=== PATIENT | female | born 1945 | race Caucasian/White ===

== ENCOUNTER → 2018-05-02 08:14 | Outpatient (CLI) | payer MEDICARE, BC, SELFPAY ==
[2018-05-02 08:39] LABS: Absolute Basophil Count 0.02 k/cumm (0.0-0.2); Absolute Eosinophil Count 0.14 k/cumm (0.0-0.7); Absolute Lymphocyte Count 2.25 k/cumm (1.2-3.4); Absolute Monocyte Count 0.43 k/cumm (0.11-0.7); Absolute Neutrophil Count 3.27 k/cumm (1.2-6.7); Basophils % 0.3; Eosinophils % 2.3; HCT 40.4 % (36.0-46.0); Lymphocytes % 36.8; Mean Corp. HGB Concentration 34.7 g/dL (32.0-36.0); Mean Corpuscular Hemoglobin 29.2 pg (27.0-33.0); Mean Corpuscular Volume 84.2 fL (80-95); Neutrophils % 53.6; Platelet Count 159 x1000/uL (130-400); RBC Distribution Width 13.2 % (11.7-14.6); White Blood Cell Count 6.11 k/cumm (4.4-10.8)
[2018-05-02 09:51] LABS: ALT 32 U/L (12-78); AST 18 U/L (15-37); Albumin 3.9 g/dL (3.4-5.0); Alkaline Phosphatase 73 U/L (46-116); Anion Gap 8.8 mmol/L (3-11); BUN 15 mg/dL (7-18); CO2 28.2 mmol/L (21.0-32.0); CREATININE 0.93 mg/dL (0.55-1.02); Calcium 8.8 mg/dL (8.5-10.1); Chloride 106 mmol/L (98-107); Cholesterol 181 mg/dL (50-200); Estimated GFR 58.93 (mL/min/1.73m2); Glucose 118 mg/dL (70-100); HDL Cholesterol 53 mg/dL (40-60); LDL CHOLESTEROL 103 mg/dL (<100); Potassium 4.2 mmol/L (3.5-5.1); Sodium 143 mmol/L (136-145); Total Protein 6.5 g/dL (6.4-8.2); Triglyceride 208 mg/dL (30-150)
[2018-05-02 10:15] LABS: Bilirubin, Total 0.6 mg/dL (0.2-1.0)
== END ==
PROVIDERS: PCP Nurse Practitioner; Visit Provider Nurse Practitioner
DX: E78.5 Hyperlipidemia, unspecified (principal); I10 Essential (primary) hypertension; R73.9 Hyperglycemia, unspecified
CPT/HCPCS: 36415; 80053; 80061; 83721; 85025

== ENCOUNTER 2018-06-19 13:18 | Outpatient (CLI) | payer MEDICARE, BC, SELFPAY ==
--- NOTE | 2018-06-19 13:47 | DI.RAD_ITS ---
SYMPTOM/DIAGNOSIS: S/P RT JOCELINE, LT KNEE PAIN LEFT KNEE: Three views. There is mild elliott-articular spurring in the medial femoral tibial joint space and the posterior patella. There is an enthesophyte seen at the superior aspect of the patella. The joint spaces are otherwise well maintained. The bones are intact and normally mineralized. There is a small joint effusion. The soft tissues are unremarkable. IMPRESSION: Mild degenerative changes of the left knee. RIGHT HIP: Two views. Comparison is made with 06/30/16. There are again seen post surgical changes of a right total hip replacement. The orthopedic hardware appears intact. No evidence of loosening or infection is present. The bones are intact. No fracture or dislocation is identified. The soft tissues are grossly unremarkable. IMPRESSION: Stable right THR.
== END 2018-06-19 13:38 ==
PROVIDERS: Visit Provider Student in an Organized Health Care Education/Training Program
DX: M25.562 Pain in left knee (principal); M17.12 Unilateral primary osteoarthritis, left knee; M25.462 Effusion, left knee; Z96.641 Presence of right artificial hip joint; M23.92 Unspecified internal derangement of left knee; Z47.1 Aftercare following joint replacement surgery
CPT/HCPCS: 20610; 73562; 99214; 73502; J1040

== ENCOUNTER 2018-06-23 00:50 | Outpatient (CLI) | payer MEDICARE, BC, SELFPAY ==
--- NOTE | 2018-06-23 13:40 | DI.MRI_ITS ---
SYMPTOMS/DIAGNOSIS: LEFT KNEE PAIN, INTERNAL DERANGEMENT, M23.92 MRI OF THE LEFT KNEE: Comparison is made with July,. Fat-suppressed T2 axial, proton density and fat-suppressed T2 sagittal, T1 and fat-suppressed T2 coronal and proton density oblique sagittal sequences were performed. There is a large amount of abnormal signal in the posterior horn of the medial meniscus. There is also absence of a large portion of the body of the medial meniscus. The findings may be secondary to previous meniscectomy. The lateral meniscus appears intact. There is a mild amount of edema around the medial collateral ligament but no evidence of a full-thickness tear. There is cartilage thinning over the medial femoral condyle and a small amount of high signal in the underlying bone. The lateral collateral ligaments, anterior and posterior cruciate ligaments and extensor mechanism are unremarkable. There is some spurring at the quadriceps insertion on the patella. There is a small joint effusion. IMPRESSION: Diminutive-appearing body of the medial meniscus, presumably related to previous surgery. There is abnormal high signal in the posterior horn, which could represent a recurrent tear versus worsening of the previously noted inferior surfacing tear.
== END 2018-06-23 01:10 ==
PROVIDERS: PCP Nurse Practitioner; Visit Provider Student in an Organized Health Care Education/Training Program
DX: M25.562 Pain in left knee (principal); M23.92 Unspecified internal derangement of left knee
CPT/HCPCS: 73721

== ENCOUNTER 2018-08-14 11:05 | Outpatient (CLI) | payer MEDICARE, BC, SELFPAY ==
--- NOTE | 2018-08-15 10:30 | W.PREOPHP ---
Date of service: 08/14/18 Assessment and Plan (1) Internal derangement of left knee: Current visit: Yes Status: Acute Plan: Discussed surgery including surgical technique, recovery, benefits and risks including but not limited to risk of blood clot, infection, damage to soft tissues/nerves/blood vessels with patient in detail. After discussion patient gives verbal understanding of risks and elects to proceed with surgery. Patient had opportunity to have questions answered to her satisfaction. She will contact office if issues arise, patient will be scheduled for left knee arthroscopy with partial medial meniscectomy by Dr. Sadler on 08/22/18. History of Present Illness Narrative: Ms. Jennings is a 73-year-old female who presents to the clinic for preoperative visit for scheduled left knee arthroscopy and partial medial meniscectomy with Dr. Sadler on 08/22/18. Patient is status post left knee arthroscopy done [place] [address] Saenz in [place], [place]. Patient reports the following left knee arthroscopy she continued to experience pain which was treated with a series of 4 Synvisc injections. Following Synvisc injections patient reports she had complete pain relief until several years ago. Patient describes falling down a bank while gardening which elicited left knee pain several years ago at which time an MRI was ordered and she was treated with conservative therapies. MRI report from 07/27/[address] Reza reports summary of no fracture is identified. There are degenerative changes involving the medial meniscus and there is an apparent undersurfacing tear of the posterior meniscal horn. Patient reports pain following injury resolved until she started to experience left knee pain in summer 2017. Patient reports on June 14, 2018 she went for a run when she felt a snap in her knee and had significant pain as well as swelling. Patient describes at time of injury she had difficulty bearing weight on the leg due to the extreme pain. Patient was seen in orthopedic clinic on 06/19/18 at which time approximately 30 cc of blood-tinged joint fluid was aspirated and patient was given corticosteroid injection. Patient reports although she had improved symptoms following aspiration and injection she continued to have medial left knee pain that was described as a dull ache. Patient reports since June 2018 her knee feels like it is going to give out and is weak. Patient denies any actual giving out sensation. Pain is aggravated at night when patient is laying down and with movement on stairs, denies worsening symptoms with ascending or descending stairs. Patient denies the need for [id number] pain medications. Patient denies numbness or tingling. Patient has failed conservative therapies and continues to have pain which is restricting her desired activities therefore patient elects to continue with scheduling surgery. Impression of MRI of left knee by Dr. Noel on 06/23/18: Diminutive-appearing body of the medial meniscus, presumably related to previous surgery. There is abnormal high signal in the posterior horn, which could represent a recurrent tear versus worsening of the previously noted inferior surfacing tear. Pertinent Surgical Information Patient reports history of impaired fasting glucose which she does not require medication for. Review of patient's chart shows last hemoglobin A1c of 6.1 on 04/21/17, however patient reports she had additional studies done in approximately 6 months ago without significant change. Denies past medical history of: stroke, cardiac issues, angina, asthma, COPD, sleep apnea, renal issues, liver issues, hepatitis, gastrointestinal issues, ulcers, bleeding disorders, seizures, migraines, anxiety, depression, diabetes, autoimmune disorders, thyroid issues Denies prior complications from surgery or anesthesia. Review of Systems Constitutional Denies fever(s), Denies frequent falls and Denies headache(s) Eyes Denies change in vision ENT Denies dental pain, Denies headache(s), Denies epistaxis, Denies nasal congestion, Denies nasal discharge and Denies sore throat Cardiovascular Denies chest pain, Denies rapid heart rate, Denies irregular heart rhythm, Denies dyspnea, Denies dyspnea on exertion, Denies orthopnea, Denies paroxysmal nocturnal dyspnea and Denies slow heart rate Respiratory Denies dyspnea, Denies dyspnea on exertion and Denies wheezing Gastrointestinal Denies abdominal pain, Denies melena, Denies hematochezia, Denies constipation, Denies diarrhea, Denies nausea and Denies vomiting Genitourinary Denies hematuria, Denies dysuria and Denies urinary urgency Musculoskeletal Reports as per HPI, Denies numbness and Denies tingling Neurologic Denies frequent falls, Denies headache(s), Denies numbness and Denies tingling Psychiatric Denies anxiety and Denies depression Allergic/Immunologic Denies wheezing PFSH History of colon polyps (Acute) Fracture of phalanx of little finger (Acute) Fracture of toe (Acute) Status post tubal ligation (Acute) Internal derangement of left knee (Acute) Right hip pain (Resolved 01/21/16) Benign neoplasm of colon (Acute 06/15/13) Hypertension (Chronic) Other and unspecified hyperlipidemia (Acute 01/09/13) Impaired fasting glucose (Chronic 01/09/13) Essential hypertension (Acute 01/10/13) Osteoarthritis of right hip (Resolved) Family History Grandfather Diabetes Grandmother Diabetes Mother Lung cancer Father Colon cancer Heart disease Total replacement of hip (Inactive 06/15/16) Ligation of fallopian tube (Inactive) History of removal of cyst (Acute) H/O dilation and curettage (Acute) Status post bilateral cataract extraction (Acute) Status post arthroscopy of left knee (Acute) Status post right hip replacement (Acute 07/20/17) Family History Grandfather Diabetes Grandmother Diabetes Mother Lung cancer Father Colon cancer Heart disease Medical History History of colon polyps (Acute) Fracture of phalanx of little finger (Acute) Fracture of toe (Acute) Status post tubal ligation (Acute) Internal derangement of left knee (Acute) Right hip pain (Resolved 01/21/16) Benign neoplasm of colon (Acute 06/15/13) Hypertension (Chronic) Other and unspecified hyperlipidemia (Acute 01/09/13) Impaired fasting glucose (Chronic 01/09/13) Essential hypertension (Acute 01/10/13) Osteoarthritis of right hip (Resolved) Social History foster care: No marital status: number of children: 3 current occupational status: retired frequency: 1-2 times per week duration: 15-30 minutes/day Smoking/Tobacco Use Status: Never alcohol intake: current alcohol intake frequency: a few times a month substance use type: does not use Surgical History Total replacement of hip (Inactive 06/15/16) Ligation of fallopian tube (Inactive) History of removal of cyst (Acute) H/O dilation and curettage (Acute) Status post bilateral cataract extraction (Acute) Status post arthroscopy of left knee (Acute) Status post right hip replacement (Acute 07/20/17) Social History foster care: No marital status: number of children: 3 current occupational status: retired frequency: 1-2 times per week duration: 15-30 minutes/day Smoking/Tobacco Use Status: Never alcohol intake: current alcohol intake frequency: a few times a month substance use type: does not use Meds Home Medications Medication Instructions Recorded Confirmed Type multivitamin [Daily Multi-Vitamin] 1 ea PO DAILY 01/21/16 08/14/18 History aspirin 81 mg PO DAILY tab-cap 02/09/17 08/14/18 History atorvastatin 40 mg PO DAILY #90 tab-cap 02/15/18 08/14/18 Rx metoprolol succinate 100 mg PO DAILY #90 tab 02/15/18 08/14/18 Rx valsartan-hydrochlorothiazide 1 tab PO DAILY #90 tab 02/15/18 08/14/18 Rx varicella-zoster glycoE [id number] 50 mcg IM ONCE #1 each 05/18/18 08/14/18 Rx adj(PF) 50 mcg/0.5 mL IM susp, kit Allergies Allergy/AdvReac Type Severity Reaction Status Date / Time No Known Allergies Allergy Unverified 08/15/18 20:51 Exam Const General: cooperative and no acute distress [facility] Head: normal to inspection, normocephalic and atraumatic Ears: external ears normal General nose exam: external nose normal and no nasal discharge Face and sinus: face symmetric Mouth: oral mucosae normal, lip normal, tongue normal and moist mucous membranes Teeth and gingiva: dentition normal Throat: posterior oropharynx normal Eyes General: appearance normal, both eyes and all related structures Pupils: PERRL EOM: EOM intact bilaterally Neck Neck: trachea midline Carotids: normal carotid upstroke Lymphatic: no lymphadenopathy noted Resp Effort & Inspection: normal respiratory effort and able to speak in complete sentences Auscultation: clear to auscultation bilaterally, no rales, no rhonchi and no wheezes Cardio Heart Sounds: S1 normal, S2 normal, no murmurs, no rubs and no other Pulses: radial pulses present bilaterally GI Palpation: soft, no hepatosplenomegaly and nontender Auscultation: normal bowel sounds Skin General skin exam: no rashes or lesions noted Extrem Other: Left knee examination: Well-healed surgical incisions are noted consistent with past surgical history. Skin is intact without signs of erythema, lesions or ecchymosis. Slight effusion noted. No tenderness to palpation along joint lines or with movement of patella. Active range of motion yields full extension and flexion of 115 degrees. Knee stable to valgus and varus stress, stress test does not elicit pain. Jailene's testing elicits slight discomfort however no clicks were elicited.
== END 2018-08-14 11:25 ==
PROVIDERS: PCP Nurse Practitioner; Visit Provider Student in an Organized Health Care Education/Training Program
DX: M25.562 Pain in left knee (principal); M25.462 Effusion, left knee; M23.92 Unspecified internal derangement of left knee; Z01.818 Encounter for other preprocedural examination; I10 Essential (primary) hypertension
CPT/HCPCS: NC

== ENCOUNTER 2018-08-22 08:53 | Day surgery (SDC) | payer MEDICARE, BC, SELFPAY ==
[2018-08-22] VITALS (7 sets, daily range): BP systolic 142–176; BP diastolic 60–99; PULSE 64–67; RESP 15–21; TEMP 36.3–36.9; O2SAT 97–99
[2018-08-22] MEDS: Lactated Ringers 1,000 ML 80 ML IV (09:40)
--- NOTE | 2018-08-22 09:40 | W.PM.DSUDISC ---
Discharge Plan Disposition Patient Disposition: HOME Condition: Good Discharge Details Reason For Visit: Left knee arthroscopy Attending Provider: Deepak Sadler Primary Care Provider: Heaven Sousa Home Meds and New Rx's Prescriptions: New ibuprofen 600 mg tablet 600 mg PO TID PRNQty: 60 RF: 3 acetaminophen 500 mg capsule 1,000 mg PO Q8H PRN (Reason: pain) Qty: 60 RF: 0 oxycodone 5 mg tablet 2.5 - 5 mg PO Q4H Qty: 10 RF: 0 Continue varicella-zoster [id number] (PF) [Shingrix (PF)] 50 mcg/0.5 mL suspension for reconstitution 50 mcg IM ONCE Qty: 1 RF: 1 multivitamin [Daily Multi-Vitamin] 1 EACH tablet 1 ea PO DAILY RF: 0 aspirin 81 MG tablet,chewable 81 mg PO DAILY RF: 0 atorvastatin 40 MG tablet 40 mg PO DAILY Qty: 90 RF: 3 metoprolol succinate 100 MG tablet extended release 24 hr 100 mg PO DAILY Qty: 90 RF: 3 valsartan-hydrochlorothiazide 1 EACH tablet 1 tab PO DAILY Qty: 90 RF: 3 Discharge Instructions Stand Alone Forms: [facility] Knee Arthroscopy Equipment/Supplies: Partial Weight Bearing Crutches Activity:: Elevate Remove Dressings/Wound Care:: 72 hours Shower/Bathe:: 72 hours Diet:: As Tolerated Discharge Orders Discharge Orders: Discharge Order (Routine); Ordered 08/22/18 Ordered By: Deepak Sadler DS: Diagnosis Discharge Diagnosis (1) Internal derangement of left knee: Status: Acute
[2018-08-22] MEDS: Bupivacaine 0.5% Pres-Free 30 ML VIAL (10:20)
[2018-08-22] MEDS: oxyCODONE 5 MG TAB PO (11:36)
--- NOTE | 2018-08-23 05:53 | ROE_ITS ---
Date of service: 08/22/18 Time of Service: 11:52 Operative Note DATE OF PROCEDURE: 08/22/18 PRE-OP DIAGNOSIS: Left knee medial meniscal tear POST-OP DIAGNOSIS: same PROCEDURE: Left knee partial medial meniscectomy SURGEON: Deepak Sadler ANESTHESIA: GETA ESTIMATED BLOOD LOSS: 0 PATHOLOGY: none sent COMPLICATIONS: None Patient was transported to: PACU Patient's condition: stable Indications: I have seen Victoria in clinic for symptoms of a meniscus tear. This was confirmed based on MRI and exam findings. Nonoperative measures were exhausted but disability and pain persisted. I discussed knee arthroscopy with meniscal intervention with the patient. I reviewed the risks of the procedure to include, but not limited to, bleeding, infection, pain, stiffness, damage to nerves or vessels, recurrence, blood clot. Despite these risks, the patient elected to proceed. 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 The consent was reviewed with the patient and signed. The history and physical was updated. All questions were answered the was taken back to the operating room. The patient was placed into the supine position on the operating room table. A nonsterile tourniquet was placed high onto the leg but not used. All bony prominences were well padded. Prophylactic antibiotics in the form of cefazolin were administered. The left leg was then prepped with Chloraprep and draped in a standard fashion with stockinette and extremity drape. A timeout to confirm correct identity, side and site, procedure, allergies, anesthesia, and medical concerns was performed. The leg was placed into a pneumatic leg batista, [id number]. A standard lateral portal was made at the lateral border of the patella tendon in line with the inferior pole of the patella, soft spot. The skin and deep tissue was incised sharply and the blunt trochar was inserted atraumatically. A diagnostic arthroscopy was performed and the findings are listed above. The suprapatellar pouch had no significant inflammatory change. The patellofemoral articulation showed no articular damage as well as good tracking. The lateral gutter had no loose bodies and the medial gutter had no loose bodies. The knee was brought into some valgus stress in extension to open the medial compartment. A medial portal was made, localized by a spinal needle. The portal was created with an # 11 blade through skin and capsule under direct visualization avoiding any meniscal injury. A probe was then inserted into the medial compartment. The medial compartment was fully inspected. The chondral surface of the tibia showed global grade 3 changes focused primarily posteriorly and the surface of the femur showed some grade I chondromalacia. The medial meniscus had some complex tearing situated around the old posterior horn medial meniscal tear status post partial meniscectomy. After evaluation, the meniscus was debrided down to a stable base using a series of biters and arthroscopic gerri. It was probed afterwards to confirm that the tear had been removed and the meniscus was stable. The notch was then inspected which showed an intact ACL and an intact PCL. The leg was then brought into a figure of 4 position. The lateral compartment was fully inspected with the arthroscope and a probe. The chondral surface of the lateral femur showed no significant chondromalacia. The chondral surface of the lateral tibia showed no significant chondromalacia. The lateral meniscus had no meniscal tear. The arthroscope was brought back into the suprapatellar pouch and the leg was in full extension. The knee was thoroughly irrigated with the arthroscopic fluid on high flow and pressure. Inflow was stopped and excess fluid was removed. The wounds were closed with 4-0 Nylon. They were dressed with Xeroform, 4x4 gauze, ABD pad, Kerlix and an ANDREA wrap. A cryo-cuff was applied. The patient tolerated the procedure well and was returned to the Same Day Surgery area in a stable condition suffering no known complication.
== END 2018-08-22 12:50 | disposition home or self-care (01) ==
PROVIDERS: PCP Nurse Practitioner; Visit Provider Student in an Organized Health Care Education/Training Program
PROC: (CPT 29870; principal; 2018-08-22 10:00)
DX: S83.232A Complex tear of medial meniscus, current injury, left knee, initial encounter (principal); M94.262 Chondromalacia, left knee; X50.9XXA Other and unspecified overexertion or strenuous movements or postures, initial encounter; Y93.02 Activity, running; Z96.652 Presence of left artificial knee joint
CPT/HCPCS: 29881; E0114; J0690; J1100; J2405; J3010

== ENCOUNTER → 2018-08-30 10:55 | Outpatient (BNVA) | payer MEDICARE, BC, SELFPAY | PROVIDERS: PCP Nurse Practitioner; Referring Provider Nurse Practitioner; Visit Provider Student in an Organized Health Care Education/Training Program | DX: M23.304 Other meniscus derangements, unspecified medial meniscus, left knee (principal); M94.262 Chondromalacia, left knee; Z47.89 Encounter for other orthopedic aftercare; I10 Essential (primary) hypertension ==

== ENCOUNTER 2018-10-26 00:35 | Outpatient (CLI) | payer MEDICARE, BC, SELFPAY ==
--- NOTE | 2018-10-26 11:38 | DI.MAMMO_ITS ---
SYMPTOMS/DIAGNOSIS: BREAST CANCER SCREENING, Z12.31 MAMMOGRAMS: Mammograms were interpreted according to the usual protocol including computer analysis with CAD system, tomosynthesis and C view imaging. The breast tissue is of moderate radiodensity. There is no dominant mass. There are no suspicious calcifications and there has been no significant interval change when compared with prior images. SUMMARY: No evidence of malignancy, category 1. Yearly screening mammography is recommended.. Breast density category B. MQSA ASSESSMENT OF FINDINGS: Negative. Category 1. Patient will receive a letter notifying them of these results. BI-RADS category B. There are scattered areas of fibroglandular density.
== END 2018-10-26 00:55 ==
PROVIDERS: PCP Nurse Practitioner; Visit Provider Nurse Practitioner
DX: Z12.31 Encounter for screening mammogram for malignant neoplasm of breast (principal)
CPT/HCPCS: 77063; 77067

== ENCOUNTER 2019-05-15 11:15 | Outpatient (CLI) | payer MEDICARE, BC, SELFPAY ==
[2019-05-15 11:50] LABS: HCT 40.6 % (36.0-46.0); HGB 13.7 g/dL (12.0-15.5); Mean Corp. HGB Concentration 33.7 g/dL (32.0-36.0); Mean Corpuscular Hemoglobin 28.4 pg (27.0-33.0); Mean Corpuscular Volume 84.1 fL (80-95); Mean Platelet Volume 10.3 fL (8.0-11.0); Platelet Count 190 x1000/uL (130-400); RBC 4.83 m/cumm (4.00-5.20); RBC Distribution Width 13.5 % (11.7-14.6); White Blood Cell Count 5.54 k/cumm (4.4-10.8)
[2019-05-15 11:53] LABS: Hemoglobin A1C 6.5 % (4.5-6.2)
[2019-05-15 12:52] LABS: ALT 32 U/L (14-59); AST 14 U/L (15-37); Albumin 3.8 g/dL (3.4-5.0); Alkaline Phosphatase 73 U/L (46-116); Anion Gap 7.7 mmol/L (3-11); BUN 17 mg/dL (7-18); Bilirubin, Total 0.6 mg/dL (0.2-1.0); CO2 28.3 mmol/L (21.0-32.0); CREATININE 0.73 mg/dL (0.55-1.02); Calcium 8.9 mg/dL (8.5-10.1); Calculated LDL 79 mg/dL; Chloride 107 mmol/L (98-107); Cholesterol 169 mg/dL (50-200); Glucose 111 mg/dL (70-100); HDL Cholesterol 47 mg/dL (40-60); Sodium 143 mmol/L (136-145); Total Protein 6.6 g/dL (6.4-8.2); Triglyceride 219 mg/dL (30-150)
== END 2019-05-15 11:35 ==
PROVIDERS: PCP Nurse Practitioner; Visit Provider Nurse Practitioner
DX: E11.9 Type 2 diabetes mellitus without complications (principal); R73.01 Impaired fasting glucose; I10 Essential (primary) hypertension; E78.5 Hyperlipidemia, unspecified
CPT/HCPCS: 36415; 80053; 80061; 85027; 83036

== ENCOUNTER → 2020-01-17 11:27 | Outpatient (BNVA) | payer MEDICARE, BC, SELFPAY | PROVIDERS: PCP Nurse Practitioner; Referring Provider Nurse Practitioner; Visit Provider Student in an Organized Health Care Education/Training Program | DX: M67.88 Other specified disorders of synovium and tendon, other site (principal); E11.9 Type 2 diabetes mellitus without complications; I10 Essential (primary) hypertension | CPT/HCPCS: 99213 ==

== ENCOUNTER 2020-05-14 05:03 | Outpatient (CLI) | payer MEDICARE, BC, SELFPAY ==
[2020-05-14 07:47] LABS: Hemoglobin A1C 6.3 % (<5.7)
[2020-05-14 08:20] LABS: ALT 32 U/L (14-59); AST 20 U/L (15-37); Alkaline Phosphatase 71 U/L (46-116); Anion Gap 9.1 mmol/L (3-11); BUN 19 mg/dL (7-18); Bilirubin, Total 0.8 mg/dL (0.2-1.0); CO2 27.9 mmol/L (21.0-32.0); CREATININE 0.86 mg/dL (0.55-1.02); Calcium 9.2 mg/dL (8.5-10.1); Calculated LDL 86 mg/dL (<100); Chloride 107 mmol/L (98-107); Cholesterol 163 mg/dL (<200); Glucose 126 mg/dL (74-106); HDL Cholesterol 54 mg/dL (40-60); Potassium 4.1 mmol/L (3.5-5.1); Sodium 144 mmol/L (136-145); Total Protein 6.6 g/dL (6.4-8.2); Triglyceride 117 mg/dL (<150)
== END 2020-05-14 05:23 ==
PROVIDERS: PCP Nurse Practitioner; Visit Provider Nurse Practitioner
DX: E11.9 Type 2 diabetes mellitus without complications (principal); E78.5 Hyperlipidemia, unspecified; I10 Essential (primary) hypertension
CPT/HCPCS: 36415; 80053; 80061; 83036

== ENCOUNTER 2020-05-16 14:36 | Outpatient (CLI) | payer MEDICARE, BC, SELFPAY ==
[2020-05-18 14:52] LABS: Patient Race White; SARS-CoV-2 RNA Undetected (Undetected); SARS-CoV-2 Specimen Source Nasopharynx
== END 2020-05-16 14:56 ==
PROVIDERS: PCP Nurse Practitioner; Visit Provider Family Medicine
DX: R50.9 Fever, unspecified (principal)
CPT/HCPCS: U0003

== ENCOUNTER 2020-05-18 12:24 | Emergency (ER) | payer MEDICARE, BC, SELFPAY ==
[2020-05-18 12:46] VITALS: BP 153/90; PULSE 89; RESP 20; TEMP 37.8; O2SAT 95
--- NOTE | 2020-05-18 13:18 | W.ED.GENAD ---
Discharge Plan Disposition Patient Disposition: HOME Condition: Stable Discharge Details Chief Complaint: Fever Clinical Impression: Fever, Pharyngeal inflammation, Urinary tract infection Primary Care Provider: Heaven Sousa ED Provider: Mic Arango Home Meds and New Rx's Prescriptions: New cephalexin [Keflex] 500 mg capsule 500 mg PO TID Qty: 20 RF: 0 Continued atorvastatin 40 mg tablet 40 mg PO DAILY Qty: 90 RF: 3 metoprolol succinate 100 mg tablet extended release 24 hr 100 mg PO DAILY Qty: 90 RF: 3 magic mouthwash See Rx Instructions .ROUTE .COMPLEX Qty: 120 RF: 0 multivitamin [Daily Multi-Vitamin] 1 EACH tablet 1 ea PO DAILY RF: 0 aspirin 81 MG tablet,chewable 81 mg PO DAILY RF: 0 valsartan-hydrochlorothiazide 80-12.5 mg tablet 1 tab PO DAILY Qty: 90 RF: 3 ibuprofen 600 mg tablet 600 mg PO TID PRNQty: 60 RF: 3 acetaminophen 500 mg capsule 1,000 mg PO Q8H PRN (Reason: pain) Qty: 60 RF: 0 Discharge Instructions Instructions: Urinary Tract Infection in Women (ED), Fever in Adults (ED) Additional Instructions: Please drink plenty of fluid to stay hydrated. Please take acetaminophen (tylenol) - 650mg every 6 hours by mouth as needed for fever. Please take ibuprofen over the counter. Take 600mg by mouth every 6 hours as needed for fever. Take full course of antibiotic as prescribed. Please follow-up with your research worker encyclopedia regarding ongoing inflammation of the ear throat. Please follow-up with your primary care physician. COVID-19 testing is still pending and quarantine is still recommended. Please be sure to discuss results of urine culture. Return to emergency [facility] immediately for any worsening or new concerning symptoms. Referrals: Durga Boone DO [OSTEOPATHIC DOCTOR] - Heaven Sousa NP [Primary Care Provider] - Medical Decision Making 74-year-old female here with 3 days of fever. No signs of focal bacterial infection on exam. She has had recent sense of urinary urgency. She does not have any history of urinary tract infections. Also of note she did have some intermittent left flank discomfort that is not currently present. No CVA tenderness. Abdominal exam benign. Lungs clear to auscultation. Patient does not have a sore throat but does have mild erythema left peritonsillar area. No swelling. She has been seen by ear nose and throat for this a few weeks ago. Redness has persisted and she does plan to follow-up with ENT. I encouraged her to do this. Today urinary tract infection. Urinalysis reviewed and does have 3-5 white blood cells and 3-5 red blood cells with many bacteria and only few epithelial cells. Plan to initiate treatment with Keflex 500 3 times daily x7 days. Urine culture pending. HPI General Mode of arrival: ambulatory. Date/Time Provider Initiated Documentation: 05/18/20 12:55. Limitations to Documentation: no limitations. Information obtained by: patient. HPI Narrative: 74-year-old female presents with chief complaint of fever. Patient notes that her fever started 3 days ago and has persisted. She has associated muscle aches and does note that she had some pain in her left flank. This pain is now gone. She states she is having difficulty getting to the bathroom with a sense of urgency. No dysuria or hematuria noted. She has had some mild nausea with no vomiting. Decreased appetite. Patient spoke with her PCP and was tested for COVID-19 on Tuesday. COVID-19 testing is pending. No recent travel or known exposure to COVID-19. Patient denies cough or sore throat. No headache. No rash. Related Data Home Medications Medication Instructions Recorded Confirmed multivitamin [Daily Multi-Vitamin] 1 ea PO DAILY 01/21/16 05/18/20 aspirin 81 mg PO DAILY tab-cap 02/09/17 05/18/20 acetaminophen 1,000 mg PO Q8H PRN #60 cap 08/22/18 05/18/20 ibuprofen 600 mg PO TID PRN #60 tab 08/22/18 05/18/20 valsartan 80 1 tab PO DAILY #90 tab 11/13/19 05/18/20 mg-hydrochlorothiazide 12.5 mg tablet atorvastatin 40 mg tablet 40 mg PO DAILY #90 tab-cap 11/22/19 05/18/20 metoprolol succinate 100 mg 100 mg PO DAILY #90 tab 11/22/19 05/18/20 tablet,extended release 24 hr magic mouthwash See Rx Instructions .ROUTE 04/02/20 04/02/20 .COMPLEX #120 ml cephalexin [Keflex] 500 mg PO TID #20 cap 05/18/20 Previous Rx's Medication Instructions Recorded acetaminophen 1,000 mg PO Q8H PRN #60 cap 08/22/18 ibuprofen 600 mg PO TID PRN #60 tab 08/22/18 valsartan 80 1 tab PO DAILY #90 tab 11/13/19 mg-hydrochlorothiazide 12.5 mg tablet atorvastatin 40 mg tablet 40 mg PO DAILY #90 tab-cap 11/22/19 metoprolol succinate 100 mg 100 mg PO DAILY #90 tab 11/22/19 tablet,extended release 24 hr magic mouthwash See Rx Instructions .ROUTE 04/02/20 .COMPLEX #120 ml cephalexin [Keflex] 500 mg PO TID #20 cap 05/18/20 Allergies Allergy/AdvReac Type Severity Reaction Status Date / Time No Known Allergies Allergy Verified 05/18/20 12:49 General Stated Complaint: Fever DALJIT: 3 Review of Systems All systems reviewed & are unremarkable except as noted in HPI and below Constitutional Constitutional: Reports as per HPI, Reports body ache(s) and Reports fever(s) Cardiovascular Cardiovascular: Denies chest pain and Denies dyspnea Respiratory Respiratory: Denies dyspnea Gastrointestinal Gastrointestinal: Reports as per HPI and Denies abdominal pain PFSH Medical History Achilles tendinosis of right lower extremity (Acute) Benign neoplasm of colon (Acute 06/15/13) Diabetes type 2, controlled (Acute) Essential hypertension (Acute 01/10/13) goal 150/90 Fracture of phalanx of little finger (Acute) Reports fracture of right little finger Fracture of toe (Acute) Reports falling injury Injured second toes on left and right feet on separate occasions between [id number] History of colon polyps (Acute) Internal derangement of left knee (Resolved) Osteoarthritis of right hip (Resolved) Other and unspecified hyperlipidemia (Acute 01/09/13) PCEq 17.9%; LDL baseline 152 Right hip pain (Resolved 01/21/16) RTHA 06/15/16 Dr Sadler Surgical History H/O dilation and curettage (Inactive) History of removal of cyst (Acute) Removal of sebaceous cyst from anterior chest Ligation of fallopian tube (Inactive) Status post arthroscopy of left knee (Acute) 2006 Dr. Dany [place]otom[place], [place] Status post bilateral cataract extraction (Acute) Status post right hip replacement (Acute 07/20/17) DOS: 06/15/16 Dr. Sadler Status post tubal ligation (Inactive) Total replacement of hip (Inactive 06/15/16) Dr Sadler R anterior total hip arthroplasty Family History Grandfather Diabetes Grandmother Diabetes Mother Lung cancer Father Colon cancer Heart disease Social History Smoking/Tobacco Use Status: Never Alcohol Intake: current Alcohol Intake frequency: a few times a month Drug use: Never Substance use type: does not use Foster care: No Household members: spouse Housing: house Number of Children: 3 What is your relationship status?: Panel score (0-1 are the most socially isolated patients): 0 Duration: 15-30 minutes/day Frequency: 1-2 times per week Do you feel safe at home: Yes Do you feel safe in your relationship?: Yes Exam Const General: cooperative and no acute distress HENMT Ears: external ears normal and TM's normal bilaterally General nose exam: external nose normal Mouth: moist mucous membranes Throat: posterior oropharynx abnormal erythema (Left posterior oropharynx, patient notes ongoing issue being seen by ENT); no cobblstoning, no edema and no exudates Eyes Conjunctivae: normal conjunctivae Sclera: normal sclerae Neck Neck: trachea midline and supple Resp Auscultation: clear to auscultation bilaterally, no rales, no rhonchi and no wheezes Cardio Rate: regular rate and not tachycardic Rhythm: regular rhythm GI Palpation: soft, not firm, no guarding, no masses, not rigid and nontender Skin General skin exam: no rashes or lesions noted Neuro General: patient alert, patient awake and tone normal Extrem General: no edema Psych Appearance: grossly normal Mental Status: mental status grossly normal Course Vital Signs Vital signs: Vital Signs Temperature 37.8 C H 05/18/20 12:46 Pulse 89 05/18/20 12:46 Respiratory Rate 05/18/20 12:46 Blood Pressure 153/90 H 05/18/20 12:46 Pulse Oximetry 95 05/18/20 12:46 Temperature 37.8 C H 05/18/20 12:46 Temperature Source Oral 05/18/20 12:46 Pulse 89 05/18/20 12:46 Respiratory Rate 20 05/18/20 12:46 Blood Pressure 153/90 H 05/18/20 12:46 Blood Pressure Position Supine 05/18/20 12:46 Pulse Oximetry 95 05/18/20 12:46 Oxygen Delivery Method Room Air 05/18/20 12:46 Oxygen Flow Rate 0 05/18/20 12:46 Pain Level 0 05/18/20 12:46
[2020-05-18 13:50] LABS: Bilirubin Small (Negative); Blood Trace-intact (Negative); Clarity Cloudy (Clear); Glucose Negative (Negative); Ketones Negative (Negative); Leukocyte Esterase Negative (Negative); Nitrite Negative (Negative); Specific Gravity >= 1.030 (1.005-1.025); pH 5.5 (5-8)
[2020-05-18 13:59] LABS: Bacteria Many HPF (Negative); C & S Indicated? Yes; Casts 0-2 Hyaline LPF (Negative); Crystals Negative HPF (Negative); Epithelial Cells Few HPF (Negative); Mucus Negative (Negative)
[2020-05-18] MEDS: Cephalexin 500 MG CAP PO (14:24)
== END 2020-05-18 14:28 | disposition home or self-care (01) ==
PROVIDERS: Emergency Provider Student in an Organized Health Care Education/Training Program; PCP Nurse Practitioner
DX: R50.9 Fever, unspecified (principal); N39.0 Urinary tract infection, site not specified; J39.2 Other diseases of pharynx; E11.9 Type 2 diabetes mellitus without complications; I10 Essential (primary) hypertension
CPT/HCPCS: 99283; 81003; 81015; 87086

== ENCOUNTER 2020-05-26 10:25 | Outpatient (REF) | payer MEDICARE, BC, SELFPAY ==
[2020-05-26 19:12] LABS: Bilirubin Negative (Negative); Blood Negative (Negative); Clarity Clear (Clear); Glucose Negative (Negative); Ketones Negative (Negative); Leukocyte Esterase Negative (Negative); Nitrite Negative (Negative); Urobilinogen 0.2 EU/dL (Up TO 0.2)
== END 2020-05-26 10:45 ==
LOC: LBN 10:25
PROVIDERS: PCP Nurse Practitioner; Visit Provider Nurse Practitioner Adult Health
DX: N39.0 Urinary tract infection, site not specified (principal); R31.9 Hematuria, unspecified
CPT/HCPCS: 81003

== ENCOUNTER 2020-05-28 04:03 | Outpatient (CLI) | payer MEDICARE, BC, SELFPAY ==
[2020-05-28 16:51] LABS: Abs Immature Grans 0.03 10^3/uL (0.0-0.06); Absolute Basophil Count 0.05 10^3/uL (0.0-0.2); Absolute Eosinophil Count 0.09 10^3/uL (0.0-0.7); Absolute Lymphocyte Count 2.55 10^3/uL (1.2-3.4); Absolute Monocyte Count 0.76 10^3/uL (0.1-0.8); Absolute Neutrophil Count 4.69 10^3/uL (1.2-6.7); Basophils % 0.6; Eosinophils % 1.1; HCT 41.3 % (36.0-46.0); HGB 13.8 g/dL (11.2-15.7); Immature Grans % 0.4; Lymphocytes % 31.2; MCH 28.5 pg (27.0-33.0); MCHC 33.4 % (32.0-36.0); MCV 85.2 fL (80-95); MPV 9.6 fL (8.0-11.0); Monocytes % 9.3; Neutrophils % 57.4; Nucleated RBC 0 %; Platelet Count 342 10^3/uL (130-400); RBC 4.85 10^6/uL (3.93-5.22); RDW 13.2 % (11.7-14.6); RDW-SD 41.1 fL; WBC 8.17 10^3/uL (4.4-10.8)
[2020-05-28 17:44] LABS: Anion Gap 11.2 mmol/L (3-11); BUN 17 mg/dL (7-18); CO2 25.8 mmol/L (21.0-32.0); CREATININE 0.82 mg/dL (0.55-1.02); Calcium 9.4 mg/dL (8.5-10.1); Chloride 103 mmol/L (98-107); Glucose 103 mg/dL (74-106); Potassium 3.7 mmol/L (3.5-5.1); Sodium 140 mmol/L (136-145)
[2020-05-30 10:20] LABS: Lyme Ab w Rflx to Lyme Confirm Negative (Negative)
== END 2020-05-28 04:23 ==
PROVIDERS: PCP Nurse Practitioner; Visit Provider Nurse Practitioner Adult Health
DX: I10 Essential (primary) hypertension (principal); R50.9 Fever, unspecified; R80.9 Proteinuria, unspecified; R79.9 Abnormal finding of blood chemistry, unspecified
CPT/HCPCS: 36415; 80048; 85025; 86618

== ENCOUNTER 2020-06-03 01:09 | Outpatient (CLI) | payer MEDICARE, BC, SELFPAY ==
--- NOTE | 2020-06-03 08:15 | DI.MAMMO_ITS ---
EXAM: MG MAMMO SCREENING CLINICAL HISTORY: screening,Z12.39 TECHNIQUE: Bilateral full field digital CC and MLO mammographic images were obtained with 3D tomosyn thesis and utilizing computer aided detection (CAD). COMPARISON: Available for comparison. FINDINGS: Masses/Architectural Distortion: None seen. Microcalcifications: No suspicious pleomorphic-type are seen. Skin Thickening/Nipple Retraction: None. IMPRESSION: 1. No significant interval change with no specific features of malignancy noted. 2. Unless there is more urgent need, screening mammography is recommended, as per [place] [employer] guidelines. BI-RADS Category 1 - Negative Breast Density - Category C - Heterogeneously dense The mammogram demonstrates the patient's breast tissue is dense. Dense breast tissue is very common a nd is not abnormal but dense breast tissue can make it harder to find cancer on a mammogram. Also, de nse breast tissue may increase their breast cancer risk. This information about the result of the [facility] mogram report was provided to the patient to raise their awareness. Use this report when you speak wi th the patient about their risks for breast cancer, which includes their family history. At that time , you may recommend for more screening tests (Ultrasound or MRI) as they might be useful based on the ir risk. A negative radiographic report should not delay biopsy if a dominant or clinically suspicious mass is present. Up to ten percent of cancers are not identified on mammography. A negative report may reinforce clinical impression. Adenosis and dense breasts may obscure an underlying neoplasm. False positive reports average 6 to 10%. Patient will receive a letter notifying them of these results.
== END 2020-06-03 01:29 ==
PROVIDERS: PCP Nurse Practitioner; Visit Provider Nurse Practitioner
DX: Z12.31 Encounter for screening mammogram for malignant neoplasm of breast (principal); R92.2 Inconclusive mammogram
CPT/HCPCS: 77063; 77067

== ENCOUNTER 2020-07-09 02:42 | Outpatient (CLI) | payer MEDICARE, BC, SELFPAY ==
--- NOTE | 2020-07-09 08:15 | DI.DEXA_ITS ---
EXAM: XR DEXA BONE DENSITY W/WO CASSANDRA CLINICAL HISTORY: screening FOR OSTEOPOROSIS IN POSTMENOPAUSAL WOMAN,Z78.0 TECHNIQUE: COMPARISON: CR XR hip RT AP lat only from 06/19/2018 FINDINGS: DEXA scan was performed according to the usual protocol. Findings for left hip scanning are T-score -1.0 with left femoral neck T-score -1.5. Findings for lumbar spine scanning are T-score 0.8. Findings for left forearm scanning are T-score -0.3. IMPRESSION: Findings consistent with osteopenia according to the WHO criteria. The lateral vertebral scanogram s hows no evidence of a vertebral compression fracture. RADIATION DOSE DELIVERED: Total DLP
== END 2020-07-09 03:02 ==
PROVIDERS: PCP Nurse Practitioner; Visit Provider Nurse Practitioner Adult Health
DX: Z78.0 Asymptomatic menopausal state (principal); M85.88 Other specified disorders of bone density and structure, other site
CPT/HCPCS: 77080

== ENCOUNTER 2020-11-03 01:04 | Outpatient (CLI) | payer MEDICARE, BC, SELFPAY ==
[2020-11-04 13:12] LABS: COVID-19 RT-PCR UVMMC Result Negative (Negative)
== END 2020-11-03 01:05 | disposition home or self-care (01) ==
PROVIDERS: PCP Nurse Practitioner; Visit Provider Nurse Practitioner
DX: Z20.822 Contact with and (suspected) exposure to COVID-19 (principal)
CPT/HCPCS: U0003; U0005

== ENCOUNTER 2021-05-08 01:58 | Outpatient (CLI) | payer MEDICARE, BC, SELFPAY ==
[2021-05-08 09:07] LABS: Hemoglobin A1C 6.2 % (<5.7)
[2021-05-08 09:08] LABS: ALT 28 U/L (14-59); AST 14 U/L (15-37); Alkaline Phosphatase 70 U/L (46-116); Anion Gap 8.9 mmol/L (3-11); BUN 11 mg/dL (7-18); Bilirubin, Total 0.6 mg/dL (0.2-1.0); CO2 29.1 mmol/L (21.0-32.0); CREATININE 0.8 mg/dL (0.55-1.02); Calcium 9.2 mg/dL (8.5-10.1); Calculated LDL 88 mg/dL (<100); Chloride 106 mmol/L (98-107); Cholesterol 171 mg/dL (<200); Glucose 121 mg/dL (74-106); HDL Cholesterol 44 mg/dL (40-60); Potassium 4.5 mmol/L (3.5-5.1); Sodium 144 mmol/L (136-145); Total Protein 6.5 g/dL (6.4-8.2); Triglyceride 199 mg/dL (<150)
== END 2021-05-08 01:59 | disposition home or self-care (01) ==
LOC: LBO 01:58
PROVIDERS: PCP Nurse Practitioner; Visit Provider Nurse Practitioner
DX: E11.9 Type 2 diabetes mellitus without complications (principal); E78.5 Hyperlipidemia, unspecified; I10 Essential (primary) hypertension; M85.80 Other specified disorders of bone density and structure, unspecified site
CPT/HCPCS: 36415; 80053; 80061; 83036

== ENCOUNTER 2021-08-12 00:26 | Outpatient (CLI) | payer MEDICARE, BC, SELFPAY ==
--- NOTE | 2021-08-12 11:16 | DI.MAMMO_ITS ---
Exam(s) MAMMO SCREENING EXAM: MAMMO SCREENING CLINICAL HISTORY: screening,z12.39 TECHNIQUE: Bilateral full field digital CC and MLO mammographic images were obtained with 3D tomosyn thesis and utilizing computer aided detection (CAD). COMPARISON: Available for comparison. FINDINGS: Masses/Architectural Distortion: There is a new asymmetric density in the upper right breast seen on the medial lateral oblique view. There is also increased prominence of an opacity in the upper left breast on the MLO view. Microcalcifications: No suspicious pleomorphic-type are seen. Skin Thickening/Nipple Retraction: None. IMPRESSION: 1. Additional views of both the right and left breast are requested as described above. Ultrasound s hould also be obtained evaluation. 2. New asymmetric density in the upper right breast on the MLO view. Increased prominence of a densi ty in the posterior superior left breast on the MLO view. BI-RADS Category 0 - Assessment Incomplete: Need additional imaging evaluation Breast Density - Category C - Heterogeneously dense Breast density category C or D implies that the patient has dense breast tissue. Dense breast tissue is very common and is not abnormal but dense breast tissue can make it harder to find cancer on a ma mmogram. Also, dense breast tissue may increase their breast cancer risk. This information about the result of the mammogram report was provided to the patient to raise their awareness. Use this report when you speak with the patient about their risks for breast cancer, which includes their family hist ory. At that time, you may recommend for more screening tests (Ultrasound or MRI) as they might be us eful based on their risk. A negative radiographic report should not delay biopsy if a dominant or clinically suspicious mass is present. Up to ten percent of cancers are not identified on mammography. A negative report may reinforce clinical impression. Adenosis and dense breasts may obscure an underlying neoplasm. False positive reports average 6 to 10%. Patient will receive a letter notifying them of these results.
== END 2021-08-12 00:46 ==
PROVIDERS: PCP Nurse Practitioner; Visit Provider Nurse Practitioner
DX: Z12.31 Encounter for screening mammogram for malignant neoplasm of breast (principal); R92.8 Other abnormal and inconclusive findings on diagnostic imaging of breast
CPT/HCPCS: 77063; 77067

== ENCOUNTER 2021-08-25 00:50 | Outpatient (CLI) | payer MEDICARE, BC, SELFPAY ==
--- NOTE | 2021-08-25 | DI.US_ITS ---
Exam(s) US BREAST RT COMPLETE US BREAST LT LIMITED MG MAMMO SCREEN CALL BACK BI EXAM: MG MAMMO SCREEN CALL BACK BI and bilateral breast ultrasound CLINICAL HISTORY: F/U TO ABNL MAMMO, NEW ASYMMETRIC DENSITY RT, INC DENSITY LT. TECHNIQUE: Craniocaudal and mediolateral oblique Full Field Digital Mammography views of the bilater al breast with Computer Aided Diagnosis followed by Tomosynthesis and bilat breast ultrasound. COMPARISON: Priors available for comparison. FINDINGS: Mammography/Tomosynthesis: Masses/Architectural Distortion: There is a persistent spiculated lesion in the upper right breast on the mediolateral oblique view. It could not be visualized on a CC view. No definite nodule persist s on the additional views of the left breast. Microcalcifictions: No suspicious pleomorphic-type are seen. Skin Thickening/Nipple Retraction: None. Bilateral breast US: Echotexture: Normal appearance of the glandular tissue. Shadowing: No suspicious foci. Cyst: A 6 x 5 x 6 mm simple cyst is seen in the left breast at the 3 o'clock position 2 cm from the n ipple. Solid lesions: No cystic or solid mass is seen in the right breast. All 4 quadrants were evaluated s onographically. Ductal dilation: None. IMPRESSION: 1. Persistent area of spiculation in the upper right breast on the mediolateral oblique view. 2. An MRI of the right breast is recommended for further evaluation and localization of the lesion in the right breast. 3. The findings were discussed with the patient and the primary care physician on the date of the exa mination. BI-RADS Category 0 - Assessment Incomplete: Need additional imaging evaluation Breast Density - Category C - Heterogeneously dense Breast density Category C or D implies that the patient has dense breast tissue. Dense breast tissue can make it harder to find cancer on a mammogram. Dense breast tissue is also associated with an incr eased risk of breast cancer. This information about the result of the mammogram report was provided to the patient to raise their awareness. Use this report when you speak with the patient about their risks for breast cancer, which includes their family history. At that time, you may recommend additional screening tests (Ultrasoun d or MRI) as these tests may add significant information. A negative radiographic report should not delay biopsy if a dominant or clinically suspicious mass is present. Up to ten percent of cancers are not identified on mammography. A negative report may reinforce clinical impression. Adenosis and dense breasts may obscure an underlying neoplasm. False positive reports average 6 to 10%. Patient will receive a letter notifying them of these results.
== END 2021-08-25 01:10 ==
PROVIDERS: PCP Nurse Practitioner; Visit Provider Nurse Practitioner
DX: Z12.31 Encounter for screening mammogram for malignant neoplasm of breast (principal); R92.8 Other abnormal and inconclusive findings on diagnostic imaging of breast; N60.02 Solitary cyst of left breast; N63.11 Unspecified lump in the right breast, upper outer quadrant
CPT/HCPCS: 76642; 77063; 77067

== ENCOUNTER 2021-08-31 00:33 | Outpatient (CLI) | payer MEDICARE, BC, SELFPAY ==
[2021-08-31] MEDS: Breeza Beverage 473 ML BTL PO (08:53)
[2021-08-31] MEDS: Omnipaque 350 MG/ML 50 ML BTL PO (08:54)
[2021-08-31 09:36] LABS: CREATININE 0.7 mg/dL (0.55-1.02)
--- NOTE | 2021-08-31 10:23 | DI.CT_ITS ---
Exam(s) CT ABDOMEN PELVIS W EXAM: CT ABDOMEN PELVIS W CLINICAL HISTORY: Abdominal pain x 3 days L mid to LLQ,FEVER,FATIGUE,R10.32,R50.9. TECHNIQUE: Imaging Protocol: Axial computed tomography images with coronal and sagittal reformatted images were created and reviewed CONTRAST MATERIAL: Intravenous: Omnipaque 350 Contrast volume:100 ml Oral: yes / COMPARISON: MG MG MAMMO SCREENING from 08/12/2021 MG MG MAMMO SCREENING from 08/12/2021 MG MG MAMMO SCREEN CALL BACK BI from 08/25/2021 MG MG MAMMO SCREEN CALL BACK BI from 08/25/2021 FINDINGS: ABDOMEN: Lung Bases: Normal where visualized. Mitral annular calcification. Mildly enlarged left atrium and left ventricle. Liver: Normal density. Tiny superior hypodensity, likely cyst. Gallbladder and biliary tract: No radiodense calculus or dilation. Pancreas: Normal density, no abnormal calcifications or inflammatory process. Spleen: Normal. Kidneys: Normal size, contour and axis. No radiodense stones or obstructive uropathy. No masses seen. Adrenal glands: No masses seen. Abdominal Aorta: Abdominal portion non-dilated. Moderate atherosclerotic changes. PELVIS: Bladder: No gross wall thickening. No calculi.No focal mass. Bowel: Diffuse diverticulosis, greatest in the sigmoid region. Muscular hypertrophy in the sigmoid r egion. No evidence of diverticulitis. Normal quantity of stool. No obstruction or bowel wall thick ening. Appendix normal. Peritoneal cavity: No ascites, collection or mesenteric inflammatory response. Bones: Right hip prosthesis. Degenerative changes particularly of the facet joints greatest at L4-5 and L5-S1. Dilated right gonadal vein. No visible venous thrombosis. Reproductive organs: Enlarged retroverted uterus. Ovaries not enlarged. Lymph nodes: Unremarkable. Impression: Diverticulosis without evidence of diverticulitis. Enlarged uterus, presumed fibroids. RADIATION DOSE DELIVERED: 971.89mGy.cm Total DLP DATA REPOSITORY: All CT scans at this facility are submitted to the National Radiology Data Registry (NRDR) Dose Index Registry (DIR) with the [employer] ([employer]). RADIATION OPTIMIZATION: All CT scans at this facility use at least one of these dose optimization te chniques: automated exposure control; mA and/or kV adjustment per patient size (includes targeted exa ms where dose is matched to clinical indication); or iterative reconstruction.
== END 2021-08-31 00:53 ==
PROVIDERS: PCP Nurse Practitioner; Visit Provider Nurse Practitioner
DX: R10.32 Left lower quadrant pain (principal); K57.30 Diverticulosis of large intestine without perforation or abscess without bleeding; N85.2 Hypertrophy of uterus; R53.83 Other fatigue; R50.9 Fever, unspecified
CPT/HCPCS: 36415; 74177; 82565; Q9967

== ENCOUNTER 2021-11-16 09:09 | Outpatient (CLI) | payer MEDICARE, BC, SELFPAY ==
[2021-11-16 13:07] LABS: Source Nasal/Nares
[2021-11-16 21:53] LABS: COVID-19 PCR Negative (Negative)
== END 2021-11-16 09:10 | disposition home or self-care (01) ==
PROVIDERS: PCP Nurse Practitioner; Visit Provider Surgery Surgical Oncology
DX: Z20.822 Contact with and (suspected) exposure to COVID-19 (principal); Z01.818 Encounter for other preprocedural examination
CPT/HCPCS: 87635; U0005

== ENCOUNTER 2022-07-13 03:49 | Outpatient (CLI) | payer MEDICARE, BC, SELFPAY ==
[2022-07-13 10:02] LABS: CREATININE 0.9 mg/dL (0.55-1.02); Estimated GFR 65.03 (mL/min/1.73m2)
== END 2022-07-13 03:50 | disposition home or self-care (01) ==
LOC: LBO 03:49
PROVIDERS: PCP Nurse Practitioner; Visit Provider Radiology Radiation Oncology
DX: R91.1 Solitary pulmonary nodule (principal)
CPT/HCPCS: 36415; 82565

== ENCOUNTER → 2022-07-22 02:01 | Outpatient (CLI) | payer MEDICARE, BC, SELFPAY ==
--- NOTE | 2022-07-22 | DI.CT_ITS ---
Exam(s) CT CHEST W EXAM: CT CHEST W CLINICAL HISTORY: CT SIM SHOWED PUNCTATE RUL NODULE,SUBPLEURAL OPACITY TECHNIQUE: Imaging Protocol: Axial computed tomography images with coronal and sagittal reformatted images were created and reviewed CONTRAST MATERIAL: Intravenous: Omnipaque 350Contrast volume:70 mL. COMPARISON: MG MG MAMMO SCREEN CALL BACK BI from 08/25/2021 FINDINGS: Tracheobronchial tree: Patent where visualized. Pulmonary parenchyma: There is a 4 mm nodule in the anterior aspect of the left upper lobe. There is a peripheral opacity seen in the right upper and right middle lobes. Mediastinum and Barby: No dominant adenopathy or fluid collection. The esophagus is unremarkable. Thyroid gland: There is a multinodular thyroid gland. There is a 1.5 x 2.1 cm slightly hypodense nodu le in the inferior isthmus. A nonemergent thyroid ultrasound is recommended for further evaluation. Pleura: No effusion or pneumothorax. Heart: The heart is not dilated. Mild coronary artery calcification is present. No pericardial effusi on. Aorta: Thoracic aorta non-dilated. Atherosclerosis is present. Pulmonary arteries: The pulmonary arteries are not well opacified to evaluate for pulmonary embolic d isease. Upper abdomen: Unremarkable. Lymph nodes: Within normal limits. Bones: Within normal limits for the patient's age. Soft tissues: There is a irregular 3.6 x 1.6 cm fluid density mass with thick bruce in the upper righ t breast. Surgical clips are present. The mass appears to be involved with the underlying pectoralis muscle. Clips are seen in the right axilla. IMPRESSION: 1. Interval probable right lumpectomy and right axillary node dissection. There is a thick-walled flu id density mass in the surgical bed. This may represent a postsurgical seroma or hematoma. A recurren t mass should also be considered. Please correlate with patient's surgical history and follow-up. 2. 4 mm nodule in the anterior aspect of the left upper lobe. A follow-up CT scan of the chest is rec ommended to document stability. 3. Peripheral infiltrate in the right upper and right middle lobes. While this may represent acute in filtrate, chronic fibrosis cannot be excluded. Please correlate with the patient's medical treatment, specifically radiation therapy. RADIATION DOSE DELIVERED: 559.4mGy.cm Total DLP DATA REPOSITORY: All CT scans at this facility are submitted to the National Radiology Data Registry (NRDR) Dose Index Registry (DIR) with the [employer] (ACR). RADIATION OPTIMIZATION: All CT scans at this facility use at least one of these dose optimization te chniques: automated exposure control; mA and/or kV adjustment per patient size (includes targeted exa ms where dose is matched to clinical indication); or iterative reconstruction.
[2022-07-22] MEDS: Omnipaque 350 MG/ML 500 ML BTL-Imaging package IJ (09:29)
[2022-07-22] MEDS: Normal Saline Flush 10 ML SYR IVP (09:34)
== END ==
PROVIDERS: PCP Nurse Practitioner; Visit Provider Radiology Radiation Oncology
DX: R91.8 Other nonspecific abnormal finding of lung field (principal); R91.1 Solitary pulmonary nodule
CPT/HCPCS: 71260

== ENCOUNTER → 2022-08-13 01:09 | Outpatient (CLI) | payer MEDICARE, BC, SELFPAY ==
--- NOTE | 2022-08-13 11:10 | DI.MAMMO_ITS ---
Exam(s) MG MAMMO SCREENING 60 MIN DUR EXAM: MG MAMMO SCREENING 60 MIN DUR CLINICAL HISTORY: HX BREAST CANCER, SCREENING FOR BREAST CANCER Z12.31 TECHNIQUE: Mammograms were interpreted according to the usual protocol including computer analysis w [facility] CAD system, tomosynthesis and C-view imaging. COMPARISON: 2012 through 2020 FINDINGS: The breasts are composed of heterogeneously dense fibroglandular densities, Breast Density category C . No suspicious masses or suspicious microcalcifications are seen. There are now surgical clips in the superior right breast and right axilla. Related to lumpectomy occurring since the prior exam.. The re is a biopsy marker clip within a nodule in the superior left breast. This nodule is unchanged in size. No skin thickening or abnormal axillary lymph nodes are seen. Multiple skin moles are noted. There has been no significant change from prior exams. IMPRESSION: BI-RADS Cat 2 - Benign Findings Yearly screening mammography is recommended. Breast Density Category C, heterogeneously Dense. The mammogram demonstrates the patient's breast tissue is dense. Dense breast tissue is very common a nd is not abnormal but dense breast tissue can make it harder to find cancer on a mammogram. Also, de nse breast tissue may increase breast cancer risk. This information about the result of the mammogram report was provided to the patient to raise their awareness. Use this report when you speak with the patient about their risks for breast cancer, which includes their family history. At that time, you may recommend additional screening tests (Ultrasound or MRI) as they might be useful based on their r isk. A negative radiographic report should not delay biopsy if a dominant or clinically suspicious mass is present. Up to ten percent of cancers are not identified on mammography. A negative report may reinforce clinical impression. Adenosis and dense breasts may obscure an underlying neoplasm. False positive reports average 6 to 10%.
== END ==
PROVIDERS: PCP Nurse Practitioner; Visit Provider Surgery Surgical Oncology
DX: Z12.31 Encounter for screening mammogram for malignant neoplasm of breast (principal); R92.8 Other abnormal and inconclusive findings on diagnostic imaging of breast
CPT/HCPCS: 77063; 77067

== ENCOUNTER 2022-09-14 01:07 | Outpatient (CLI) | payer MEDICARE, BC, SELFPAY ==
--- NOTE | 2022-09-14 | DI.US_ITS ---
Exam(s) US THYROID EXAM: US THYROID CLINICAL HISTORY: MULTINODULAR THYROID GOITER,2.1 CM INFERIOR ISTHMUS ON CHEST CT, E04.1. TECHNIQUE: Ultrasound thyroid performed using standard protocol. COMPARISON: Recent chest CT scan was reviewed. FINDINGS: Both thyroid lobes exhibit upper normal size and contain multiple nodules, many of which are cystic. The most significant is in the isthmus. RIGHT THYROID LOBE: Measures 2.2 cm AP x 1.9 cm wide x 4.8 cm craniocaudal In addition to small colloid cysts there is a slightly more complex septated cystic structure measuri ng 1.8 x 1.2 x 1.1 cm nodule which is mixed solid-cystic (1 point) but no other TI-RADS points and th erefore registered as a TR1 level nodule which does not require biopsy. Lower down the right lobe there are 2 adjacent mixed solid-cystic nodules, both exhibiting maximum me asurement of 1.1 cm and also do not meet biopsy criteria. ISTHMUS: The isthmus contains dominant nodule in the gland which measures 3.1 x 1.1 x 2.2 cm This nodule is mixed solid-cystic (predominately solid) =2 points Echogenicity of this nodule isoechoic compared to surrounding tissue = 1 point Margins of this nodule are relatively smooth = 0 points In the transverse plane this nodule appears wider than taller = 0 points This nodule does not appear to contain echogenic foci = 0 points Total points for this nodule =3 points Therefore this is a TR3 level nodule Therefore ultrasound-guided FNA is recommended as this nodule measures greater than 2.5 cm. LEFT THYROID LOBE: Measures 1.6 cm AP x 1.2 wide x 4.5 cm craniocaudal. Contains multiple small nodules, the largest measuring 1.2 x 0.6 x 1.5 cm and is a TR3 nodule which d oes not require FNA as it measures less than 0.5 cm LYMPH NODES: There is no significant adenopathy evident on either side of the neck.. IMPRESSION: 1. Multiple nodules in both thyroid lobes as well as the isthmus. However, it is the isthmus nodule w hich is dominant and which qualifies as a TR3 level nodule will require ultrasound-guided FNA as it m easures greater than 2.5 cm, being 3.1 cm in largest measurement. 2. Other findings as above in both lobes which do not require biopsy 3. There is no significant lymphadenopathy. DATA REPOSITORY:
== END 2022-09-14 01:27 ==
LOC: DI 01:08
PROVIDERS: PCP Nurse Practitioner; Visit Provider Radiology Radiation Oncology
DX: E04.2 Nontoxic multinodular goiter (principal)
CPT/HCPCS: 76536

== ENCOUNTER 2023-01-10 04:33 | Outpatient (CLI) | payer MEDICARE, BC, SELFPAY ==
[2023-01-10 09:04] LABS: Abs Immature Grans 0.02 10^3/uL (0.0-0.06); Absolute Basophil Count 0.03 10^3/uL (0.0-0.2); Absolute Eosinophil Count 0.16 10^3/uL (0.0-0.7); Absolute Lymphocyte Count 0.97 10^3/uL (1.2-3.4); Absolute Monocyte Count 0.38 10^3/uL (0.1-0.8); Basophils % 0.6; Eosinophils % 3.1; HCT 40.8 % (36.0-46.0); HGB 13.8 g/dL (11.2-15.7); Immature Grans % 0.4; Lymphocytes % 18.8; MCH 28.9 pg (27.0-33.0); MCHC 33.8 % (32.0-36.0); MCV 86 fL (80-95); MPV 10.2 fL (8.0-11.0); Monocytes % 7.4; Neutrophils % 69.7; Platelet Count 171 10^3/uL (130-400); RBC 4.77 10^6/uL (3.93-5.22); RDW 12.9 % (11.7-14.6); RDW-SD 39.8 fL; WBC 5.16 10^3/uL (4.4-10.8)
[2023-01-10 09:47] LABS: ALT 25 U/L (14-59); AST 15 U/L (15-37); Albumin 3.6 g/dL (3.4-5.0); Alkaline Phosphatase 58 U/L (46-116); Anion Gap 7.4 mmol/L (3-11); BUN 14 mg/dL (7-18); Bilirubin, Total 0.5 mg/dL (0.2-1.0); CO2 30.6 mmol/L (21.0-32.0); Calcium 9.2 mg/dL (8.5-10.1); Calculated LDL 64 mg/dL (<100); Chloride 105 mmol/L (98-107); Cholesterol 136 mg/dL (<200); Estimated GFR 57.31 (mL/min/1.73m2); Glucose 149 mg/dL (74-106); HDL Cholesterol 58 mg/dL (40-60); Sodium 143 mmol/L (136-145); Total Protein 7.3 g/dL (6.4-8.2); Triglyceride 74 mg/dL (<150)
== END 2023-01-10 04:34 | disposition home or self-care (01) ==
PROVIDERS: PCP Nurse Practitioner; Visit Provider Nurse Practitioner
DX: R91.1 Solitary pulmonary nodule (principal)
CPT/HCPCS: 36415; 80053; 80061; 85025

== ENCOUNTER 2023-01-17 00:54 | Outpatient (CLI) | payer MEDICARE, BC, SELFPAY ==
--- NOTE | 2023-01-17 08:30 | DI.CT_ITS ---
Exam(s) CT CHEST W EXAM: CT CHEST W CLINICAL HISTORY: LUNG NODULE, R91.1 TECHNIQUE: Imaging Protocol: Axial computed tomography images with coronal and sagittal reformatted images were created and reviewed CONTRAST MATERIAL: Intravenous: Omnipaque 350 Contrast volume:70 ml. COMPARISON: CT CT CHEST W from 07/22/2022 FINDINGS: Pulmonary parenchyma: No consolidation. No dominant measurable mass. Stable tiny nodule anterior le ft upper lobe, 3 millimeters. Decreased opacities in peripheral right upper lobe and right middle lob e. Findings likely secondary to radiation therapy. Right upper lobe calcification. Tracheobronchial tree: No bronchiectasis or mucous plugging. Mediastinum and Barby: No dominant adenopathy or fluid collection. Pleura: No effusion or pneumothorax. Heart: The heart is not dilated. No coronary artery calcifications are seen. Aorta: Thoracic aorta non-dilated. Upper abdomen: Unremarkable. Bones: Stable mild T5 compression fracture. Degenerative changes. Soft tissues: Stable thyroid nodules. Surgical clips left right axilla and right upper breast. IMPRESSION: Stable tiny left upper lobe nodule. Improvement in peripheral opacities in the right upper and middle lobes consistent with radiation the rapy. RADIATION DOSE DELIVERED: 547.2mGy.cm Total DLP DATA REPOSITORY: All CT scans at this facility are submitted to the National Radiology Data Registry (NRDR) Dose Index Registry (DIR) with the [employer] ([employer]). RADIATION OPTIMIZATION: All CT scans at this facility use at least one of these dose optimization te chniques: automated exposure control; mA and/or kV adjustment per patient size (includes targeted exa ms where dose is matched to clinical indication); or iterative reconstruction.
[2023-01-17] MEDS: Normal Saline - Diluent 50 ML VIAL IJ (08:47)
[2023-01-17] MEDS: Omnipaque 350 MG/ML 100 ML BTL IJ (08:47)
== END 2023-01-17 01:14 ==
LOC: DI 00:54
PROVIDERS: PCP Nurse Practitioner; Visit Provider Radiology Radiation Oncology
DX: R91.1 Solitary pulmonary nodule (principal); E04.1 Nontoxic single thyroid nodule
CPT/HCPCS: 71260; J3490

== ENCOUNTER 2023-03-03 11:16 | Outpatient (CLI) | payer MEDICARE, BC, SELFPAY ==
--- NOTE | 2023-03-03 09:57 | DI.RAD_ITS ---
Exam(s) XR KNEE RT 3V AP,LAT,MARIBETH EXAM: XR KNEE RT 3V AP,LAT,MARIBETH CLINICAL HISTORY: right knee pain. TECHNIQUE: 2D digital imaging was performed. Three views. COMPARISON: None FINDINGS: BONES: No acute fracture is present. No bony destructive lesion is seen. JOINTS: The knee is normally aligned. No joint effusion is seen. Minimal spurring at the articular aspect of the patella. SOFT TISSUE: Normal. IMPRESSION: Minimal degenerative changes. DATA REPOSITORY: RADIATION DOSE DELIVERED:
== END 2023-03-03 11:17 | disposition home or self-care (01) ==
LOC: DIORS 11:17
PROVIDERS: PCP Nurse Practitioner; Referring Provider Nurse Practitioner; Visit Provider Physician Assistant
DX: M23.91 Unspecified internal derangement of right knee
CPT/HCPCS: 73562; 99213

== ENCOUNTER 2023-03-24 01:06 | Outpatient (CLI) | payer MEDICARE, BC, SELFPAY ==
--- NOTE | 2023-03-24 07:45 | DI.MRI_ITS ---
Exam(s) MR LOWER JOINT RT WO EXAM: MR LOWER JOINT RT WO CLINICAL HISTORY: PAIN,internal derangement rt knee, m23.91 TECHNIQUE: Multiplanar multisequence MRI of the knee was performed. COMPARISON: MR MR lower joint LT wo from 06/23/2018 CR XR KNEE RT 3V AP,LAT,MARIBETH from 03/03/2023 FINDINGS: EFFUSION: There is a moderate size knee joint effusion. No Philip cyst. MARROW:There are no fractures but there is prominent subarticular bone edema in the medial femoral co ndyle and subjacent tibial plateau and there appears to be an osteochondral defect at the articular s urface of the medial femoral condyle measuring 1 cm wide by 1.2 cm AP x 0.3 cm deep. Does not appear unstable at this time. There is no intraosseous edema in the lateral compartment nor in the fibular head and neck. PATELLOFEMORAL COMPARTMENT: The quadriceps tendon is intact. The patellar ligament is intact. There is mild subcutaneous edema anterior to the patellar ligament but no tear of this structure. There is mild-moderate thinning of the retropatellar cartilage over the medial facet, somewhat diffic ult to evaluate because of motion artifact on the axial sequence. However, this appears to be associ ated with a small degenerative subarticular cyst in the posterior patella at this level. The retropa tellar cartilage over the lateral facet appears intact with normal thickness and no fissures.There is no intraosseous signal which would suggest recent patellar dislocation. There is, however, signal a bnormality deep to the medial patellar retinaculum consistent with partial tearing. CRUCIATE LIGAMENTS: The anterior cruciate ligament is intact.The posterior cruciate ligament is intac t. MEDIAL COMPARTMENT/MEDIAL MENISCUS: There is a complex tear in the posterior horn of the medial menis cus meniscal fragment is flipped posteriorly. Also significant signal abnormality evident at the men iscocapsular junction and with partial tearing of the MCL evident at this level. The anterior horn o f the medial meniscus appears intact.. There is significant cartilage loss over the medial femoral condyle articular surface and there is an osteochondral defect at this level measuring 10 mm wide by 12 mm AP by is 3 mm deep. This does not appear unstable at this time. There is abundant bone edema in the medial femoral condyle above this level extending into the metaphysis. There is also significant intraosseous edema in the subjacent m edial tibial plateau, also with a small surface defect at this level. MEDIAL COLLATERAL LIGAMENT: Partial tearing evident. LATERAL COMPARTMENT/LATERAL MENISCUS: There is no evidence of lateral meniscal tear.There are no lalita dral defects, osteochondral defects, subarticular marrow edema, nor osteophytes evident. ILIOTIBIAL BAND: Intact LATERAL COLLATERAL LIGAMENT COMPLEX: The fibular collateral ligament is intact. The biceps femoris t endon is intact.Popliteus muscle and tendon are intact. IMPRESSION: 1. Findings are predominantly in the medial compartment where there is a complex tear of the posterio r horn of the medial meniscus with posteriorly flipped meniscal fragment, overlying cartilage loss an d osteochondral defect and abundant bone edema in the medial femoral condyle and subjacent medial tib ial plateau. There is also significant partial tearing of the medial collateral ligament. 2. There are no significant findings in the lateral compartment. 3. No cruciate ligament tears nor tears of the lateral collateral ligament complex. 4. There is significant thinning of the retropatellar cartilage over the medial facet. Also small fo cus of subarticular edema in the posterior patella at this level. Moderate-sized joint effusion. DATA REPOSITORY:
== END 2023-03-24 01:26 ==
LOC: DI 01:06
PROVIDERS: PCP Nurse Practitioner; Visit Provider Student in an Organized Health Care Education/Training Program
DX: M25.561 Pain in right knee (principal); M23.8X1 Other internal derangements of right knee; S83.231A Complex tear of medial meniscus, current injury, right knee, initial encounter; S83.411A Sprain of medial collateral ligament of right knee, initial encounter; M25.461 Effusion, right knee
CPT/HCPCS: 73721

== ENCOUNTER → 2023-03-28 10:34 | Outpatient (BNVA) | payer MEDICARE, BC, SELFPAY | PROVIDERS: PCP Nurse Practitioner; Referring Provider Nurse Practitioner; Visit Provider Student in an Organized Health Care Education/Training Program | DX: S83.231A Complex tear of medial meniscus, current injury, right knee, initial encounter (principal); X58.XXXA Exposure to other specified factors, initial encounter | CPT/HCPCS: 99213 ==

== ENCOUNTER → 2023-04-20 13:49 | Outpatient (BNVA) | payer MEDICARE, BC, SELFPAY | PROVIDERS: PCP Nurse Practitioner; Referring Provider Nurse Practitioner; Visit Provider Student in an Organized Health Care Education/Training Program | DX: M17.11 Unilateral primary osteoarthritis, right knee (principal); M94.262 Chondromalacia, left knee | CPT/HCPCS: 99214 ==

== ENCOUNTER → 2023-06-15 08:11 | Outpatient (BNVA) | payer MEDICARE, BC, SELFPAY | PROVIDERS: PCP Nurse Practitioner; Referring Provider Nurse Practitioner; Visit Provider Student in an Organized Health Care Education/Training Program | DX: M17.11 Unilateral primary osteoarthritis, right knee (principal); S83.231A Complex tear of medial meniscus, current injury, right knee, initial encounter; X58.XXXA Exposure to other specified factors, initial encounter | CPT/HCPCS: 99214 ==

== ENCOUNTER → 2023-08-15 02:21 | Outpatient (CLI) | payer MEDICARE, BC, SELFPAY ==
--- NOTE | 2023-08-15 | DI.MAMMO_ITS ---
Exam(s) MG MAMMO SCREENING 60 MIN DUR EXAM: MG MAMMO SCREENING 60 MIN DUR CLINICAL HISTORY: SCREENING MAMMO Z12.31,personal h/o breast ca. TECHNIQUE: Bilateral full field digital CC and MLO mammographic images were obtained with 3D tomosyn thesis and utilizing computer aided detection (CAD). COMPARISON: Prior mammograms were reviewed. FINDINGS: No new significant left breast findings. Postsurgical changes in the right breast are again noted. No new significant right breast findings. There are no new spiculated masses nor new malignant appearing microcalcification groups. IMPRESSION: Benign findings. No radiographic evidence of malignancy. BI-RADS Category 2 - Benign Findings Breast Density - Category B - Scattered areas of fibroglandular density Breast density Category C or D implies that the patient has dense breast tissue. Dense breast tissue can make it harder to find cancer on a mammogram. Dense breast tissue is also associated with an incr eased risk of breast cancer. This information about the result of the mammogram report was provided to the patient to raise their awareness. Use this report when you speak with the patient about their risks for breast cancer, which includes their family history. At that time, you may recommend additional screening tests (Ultrasoun d or MRI) as these tests may add significant information. A negative radiographic report should not delay biopsy if a dominant or clinically suspicious mass is present. Up to ten percent of cancers are not identified on mammography. A negative report may reinforce clinical impression. Adenosis and dense breasts may obscure an underlying neoplasm. False positive reports average 6 to 10%. Patient will receive a letter notifying them of these results.
== END ==
PROVIDERS: PCP Nurse Practitioner; Visit Provider Surgery Surgical Oncology
DX: Z12.31 Encounter for screening mammogram for malignant neoplasm of breast (principal)
CPT/HCPCS: 77063; 77067

== ENCOUNTER 2023-08-15 15:20 | Outpatient (CLI) | payer MEDICARE, BC, SELFPAY ==
--- NOTE | 2023-08-15 15:15 | RT.EKG_ITS ---
APPROVED REPORT Exam: Resting ECG Reason for Exam: prior to surgery Patient Location: O HR:71 bpm ECG Measurements Heart Rate 71 AXIS OH 197 P 66 QRSd 112 QRS -29 QT 418 T 61 QTc 455 Conclusion Sinus rhythm...normal P axis, V-rate 50- 99 Probable left atrial enlargement...P >50mS, <-0.10mV V1 Incomplete right bundle branch block...QRSd >112, terminal axis(90,270) Left ventricular hypertrophy...multiple LVH criteria
== END 2023-08-15 15:21 | disposition home or self-care (01) ==
LOC: DI.KIM 15:21
PROVIDERS: PCP Nurse Practitioner; Visit Provider Nurse Practitioner
DX: Z01.818 Encounter for other preprocedural examination (principal)
CPT/HCPCS: 93010

== ENCOUNTER 2023-08-26 06:02 | Day surgery (SDC) | payer MEDICARE, BC, SELFPAY ==
[2023-08-22 11:59] VITALS: BP 172/84; PULSE 68; RESP 18; TEMP 36.4; O2SAT 96
--- NOTE | 2023-08-25 12:51 | PDOC.DSDIS_ITS ---
Date of service: 08/26/23 Time of Service: 11:00 Discharge Plan Disposition Patient Disposition: Home Condition: Stable Discharge Details Attending Provider: Truman Hansen Primary Care Provider: Heaven Sousa Home Meds and New Rx's Prescriptions: New aspirin 81 mg tablet,delayed release (DR/EC) 81 mg PO BID 30 Days Qty: 60 0RF naproxen 250 mg tablet 250 - 500 mg PO BID PRNQty: 40 0RF Rx Instructions: take with a meal oxycodone 5 mg tablet 5 - 10 mg PO Q4H MDD 30 mg PRN (Reason: moderate to severe pain) Qty: 18 0RF Continued (DME) blood-glucose meter [Blood Glucose Monitoring] Kit See Rx Instructions .ROUTE .MEDSUPPLY Qty: 1 0RF Rx Instructions: Test daily. Dispense covered brand. (DME) Blood Glucose Test Strip See Rx Instructions .ROUTE .MEDSUPPLY Qty: 50 12RF Rx Instructions: As directed to check blood glucose daily. No insulin. Dispense covered brand. exemestane 25 mg tablet 25 mg PO DAILY Rx Instructions: must administer after a meal doxycycline hyclate 100 mg capsule 200 mg PO ONCE PRN (Reason: tick bite) Qty: 20 3RF Trulicity 0.75 mg/0.5 mL pen injector 0.75 mg subcut QWEEK Qty: 2 5RF valsartan-hydrochlorothiazide 160-25 mg tablet 1 tab PO DAILY Qty: 90 3RF multivitamin [Daily Multi-Vitamin] 1 EACH tablet 1 ea PO DAILY metoprolol succinate 100 mg tablet extended release 24 hr See Rx Instructions .ROUTE .COMPLEX Qty: 90 3RF Dose Instruction: TAKE 1 TABLET DAILY FOR HIGH BLOOD PRESSURE Rx Instructions: TAKE 1 TABLET DAILY FOR HIGH BLOOD PRESSURE atorvastatin [Lipitor] 40 mg tablet 40 mg PO QPM Qty: 90 3RF acetaminophen 500 mg capsule 1,000 mg PO Q8H PRN (Reason: pain) Qty: 60 0RF Discontinued ibuprofen 600 mg tablet 600 mg PO TID PRNQty: 60 3RF No Action aspirin 81 mg tablet,delayed release (DR/EC) 81 mg PO DAILY Discharge Instructions Additional Instructions: Surgery: Right medial unicondylar knee replacement Activity: Weightbearing as tolerated. Recommend elevation to minimize swelling and discomfort. Walk as comfort allows. May use crutches or walker as needed for a few weeks. It is important to restore full knee extension as soon as possible. Gently increase knee flexion over the next few weeks. Do not rest with pillows behind knee to prevent knee from getting stuck bent. Encourage ankle pumps and wiggling toes to increase circulation. A physical therapy prescription will be sent electronically to begin in 2-3 weeks. Prescriptions: Aspirin 81 mg take 1 twice a day to prevent a blood clot 30 days Naproxen 250 mg take 1-2 every 12 hours with a meal as needed for moderate pain Oxycodone 5 mg take 1-2 every 4-6 hours as needed for severe pain You may use [id number] Tylenol (acetaminophen) as needed for mild pain. These pain medications may be taken all at once or in different combinations as needed. Also, recommend Colace (docusate) as a stool softener as surgery and pain medicine cause constipation. You may try [id number] diphenhydramine (Benadryl) 25-50 mg nightly as a sleep aid Dressings: Leave Band-Aid in place until follow-up. Keep clean and dry at all times. May remove Walter wrap tomorrow. May re-wrap with Walter wrap to help control swelling as needed. Follow-up: 10-[address] Hansen You may take off the leg compression Walter wrap and stockings tomorrow at home. You may also leave them on a few days longer if you have a history of leg swell ing or edema. Let us know right away if you develop any redness, drainage, fevers, chest pain, or trouble breathing. Do not drink alcohol or drive for at least 24 hours after anesthesia. Please call the office during business hours with any questions or concerns. Stand Alone Forms: Anesthesia Discharge Inst., [place].Nerve Block Instructions, Libertad Hernandez ([facility]) Discharge Orders Discharge Orders: Discharge Order (Routine); Ordered 08/26/23 Ordered By: Truman Hansen DS: Diagnosis Discharge Diagnosis (1) Arthritis of knee, right: Status: Acute
[2023-08-26] VITALS (9 sets, daily range): BP systolic 141–191; BP diastolic 68–92; PULSE 67–74; RESP 16–22; TEMP 36.3–36.5; O2SAT 96–99; BMI 28.3
[2023-08-26] MEDS: Lactated Ringers 1,000 ML 30 ML IV (06:45)
--- NOTE | 2023-08-26 06:51 | W.ANESPRE ---
General Info Date of Service Date Performed: 08/26/23 Height: 5 ft 8 in Weight: 84.5 kg Body Mass Index (BMI): 28.3 Surgical Procedure: Operation Date: 08/26/23 08:15 Proposed Procedure Side Surgeon p Knee Medial Unicondylar Arthroplasty Right Truman Hansen MD Meds Allergies and Home Medications Allergies Allergy/AdvReac Type Severity Reaction Status Date / Time No Known Allergies Allergy Verified 08/26/23 06:10 Home Medication Medication Instructions Recorded multivitamin (Daily Multi-Vitamin 1 ea PO DAILY 01/21/16 tablet) acetaminophen 500 mg capsule 1,000 mg (2 x 500 mg) PO Q8H PRN 08/22/18 pain #60 caps blood sugar diagnostic (Blood #50 ea 10/11/22 Glucose Test strips) blood-glucose meter (Blood Glucose #1 ea 10/11/22 Monitoring kit) metoprolol succinate 100 mg See Rx Instructions .Route 11/15/22 tablet,extended release 24 hr .COMPLEX #90 tabs exemestane 25 mg tablet 25 mg PO DAILY 04/20/23 doxycycline hyclate 100 mg capsule 200 mg (2 x 100 mg) PO ONCE PRN 07/13/23 tick bite #20 caps atorvastatin 40 mg tablet (Lipitor) 40 mg PO QPM #90 tabs 08/03/23 dulaglutide 0.75 mg/0.5 mL 0.75 mg (0.5 mL) subcut QWEEK #2 mL 08/15/23 subcutaneous pen injector (Trulicity) valsartan 160 1 tab PO DAILY #90 tabs 08/15/23 mg-hydrochlorothiazide 25 mg tablet aspirin 81 mg tablet,delayed 81 mg PO BID Prevent blood clot 30 08/25/23 release days #60 tabs naproxen 250 mg tablet 250 - 500 mg (1 - 2 x 250 mg) PO 08/25/23 BID PRN #40 tabs oxycodone 5 mg tablet 5 - 10 mg (1 - 2 x 5 mg) PO Q4H 08/25/23 PRN moderate to severe pain #18 tabs aspirin 81 mg tablet,delayed 81 mg PO DAILY 08/26/23 release Current Visit Medications: Current Medications Generic Name Dose Route Start Last Admin Trade Name Freq PRN Reason Stop Dose Admin Ringer's Solution 1,000 mls @ 30 mls/hr 08/26/23 06:00 IV 09/24/23 23:59 INFUSION JENNIFER Cefazolin Sodium/Dextrose 2 gm in 50 mls @ 100 mls/hr 08/26/23 06:00 Ancef Duplex IVPB 08/26/23 16:00 PREOP JENNIFER Tranexamic Acid 1,000 mg/ 60 mls @ 360 mls/hr 08/26/23 06:00 Sodium Chloride IVPB 08/26/23 16:00 PREOP JENNIFER IV Miscellaneous Supplies 1 each 08/26/23 06:00 Iv Access IV 09/24/23 23:59 DIRECTED JENNIFER Sodium Chloride 0 ml 08/26/23 06:00 Normal Saline Flush 10 Ml Syr IV 09/24/23 23:59 PRN PRN Sodium Chloride 0 ml 08/26/23 06:00 Normal Saline 10 Ml Vial IJ 09/24/23 23:59 DIRECTED PRN Sterile Water 0 ml 08/26/23 06:00 Water,Injection,Sterile 10 Ml Vial IJ 09/24/23 23:59 DIRECTED PRN PFSH Active Problems Active Problems: Problem Status Onset Code Retinopathy H35.00 Arthritis of knee, right M17.11 Right knee meniscal tear S83.206A Internal derangement of right knee M23.91 Thyroid nodule 09/14/22 E04.1 COVID ~09/10/22 U07.1 Malignant neoplasm of upper-inner quadrant of right breast in female, estrogen receptor positive C50.211, Z17.0 Invasive carcinoma of breast 11/19/21 C50.919 Abdominal pain R10.9 Osteopenia M85.80 Elevated BUN R79.9 Proteinuria, unspecified R80.9 Hematuria R31.9 Burning tongue syndrome Achilles tendinosis of right lower extremity M67.88 Cerumen impaction H61.20 Diabetes type 2, controlled E11.9 Inflamed seborrheic keratosis L82.0 Actinic keratosis L57.0 Keratosis, seborrheic L82.1 Personal history of other malignant neoplasm of skin Z85.828 Chondromalacia, left knee M94.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 Derangement of medial meniscus of left knee M23.304 History of colon polyps Z86.010 Fracture of phalanx of little finger S62.608A Fracture of toe S92.919A History of removal of cyst Z98.890 Right hip pain 01/21/16 M25.551 Benign neoplasm of colon 06/15/13 D12.6 Other and unspecified hyperlipidemia 01/09/13 E78.5 Essential hypertension 01/10/13 I10 Osteoarthritis of right hip M16.11 Medical History Medical History 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 states spinal wore off during hip surgery Surgical History Surgical History Status post partial mastectomy of right breast (~11/19/21) [place] Raimundo Hernandez MD Status post tubal ligation H/O dilation and curettage Status post bilateral cataract extraction Status post arthroscopy of left knee 2006 Dr. Dany [place]otom[place], [place] Status post right hip replacement (07/20/17) DOS: 06/15/16 Dr. Sadler Tobacco Smoking/Tobacco Use Status: Never Alcohol Alcohol Intake: current Alcohol intake frequency: a few times a month Alcohol type: wine Substance Use Substance use: Never Substance use type: does not use Details: alcohol: over a month Vital Signs and Lab Results Vital Signs Most Recent Vital Signs in EMR: Most Recent Vital Signs Temp Pulse Resp BP Pulse Ox 36.4 C L 74 18 144/74 H 98 08/26/23 06:18 08/26/23 06:18 08/26/23 06:18 08/26/23 06:18 08/26/23 06:18 Point of Care Results Point of Care Results: Finger Stick Blood Glucose 122 08/26/23 06:34 Lab Results Blood Type / Crossmatch: No Data to Display Complete Blood Count: No Data to Display Complete Metabolic Panel: No Data to Display Liver Function Panel: No Data to Display Coagulation Panel: No Data to Display Cardiac Panel: No Data to Display Arterial Blood Gas: No Data to Display Venous Blood Gas: No Data to Display Pancreas Panel: No Data to Display Thyroid Panel: No Data to Display Infectious Disease: No Data to Display Blood Cultures: No Data to Display Toxicology Panel: No Data to Display Anesthesia Assessment and Plan Anesthesia History Personal History: No History of Anesthesia Complications Family History: No Family History of Anesthesia Complications Exercise Tolerance Exercise Tolerance: Metabolic Equivalents>4 Pertinent Negatives Pertinent Negatives: No Symptoms of GERD, No Major Cardiovascular Symptoms or Complaints, No Major Pulmonary Symptoms or Complaints and No History of CVA/TIA Cardiac & Pulmonary Exam Cardiac Exam: Normal S1/S2 Heart Sounds and Other (occ irregular beat) Pulmonary Exam: Clear Bilateral Breath Sounds Implantable Cardiac Device Does patient have a Pacemaker or an ICD?: No Airway Exam Known Difficult Airway: No Mallampati Class: 2 Mouth Opening: Normal (> 3cm) Thyromental Distance: Greater than 3 cm Neck Range of Motion: Full ROM Neck Circumference: Normal Teeth Condition: Normal Dentition ASA Classification ASA Score: ASA 2 Emergency Case?: No NPO Status NPO Status: NPO Clears >2 hours, Solids >8 hours Anesthesia Plan Resuscitation Status: Full Code Anesthesia Technique: Spinal Anesthesia Airway Planned: Natural Airway Pain Management: Surgeon and patient request nerve block Monitors Used: Standard Monitors Preoperative Comments:: Hg A1C 6.7 [facility]
[2023-08-26] MEDS: Acetaminophen 500 MG TAB 1000 MG PO (07:03)
[2023-08-26] MEDS: Gabapentin 300 MG CAP PO (07:03)
[2023-08-26] MEDS: Celecoxib 200 MG CAP 400 MG PO (07:03)
[2023-08-26] MEDS: ceFAZolin 2 GM/50 ML BAG IVPB (07:48)
--- NOTE | 2023-08-26 08:28 | W.ANESNERVE ---
Nerve Block Single Injection Procedure Date and Time Date Performed: 08/26/23 Procedure Start: 07:34 Location Where Procedure Performed Procedure Location: Day Surgery Unit Reason Performed: Postoperative Analgesia Requesting Provider: Truman Hansen Timeout Performed Timeout Performed: Yes Monitoring Used ECG, Blood Pressure, SpO2 and See EMR for corresponding vital signs Sterility Sterility: Hand Hygiene, Surgical Cap, Surgical Mask, Sterile Gloves, Sterile Drape/Sheet and Chlorhexidine Sedation Given During Procedure Sedation Given (Indicate Dose Given): No Sedation given Patient Mental Status Patient Mental Status: Awake Nerve Block 1st Nerve Block: Laterality: Right Block Type: Adductor Canal Ultrasound Image Saved?: Yes Needle / Catheter Used: 100mm SonoPlex II Local Anesthetic Bolus (Indicate Dose Given): Lidocaine used for local infiltration of skin, Injected in 3-5ml increments after negative blood aspiration, Bupivacaine 0.25% Dose:: 10 ml and Exparel Dose:: 10 ml Additives (Indicate Dose Given): None Ultrasound: Sterile probe cover and gel used Nerve Stimulator: Not Used Paresthesia: Right (repositioned prior to injection) Paresthesia Duration: Transient Procedure Tolerated: No Complications and Patient tolerated well Procedure Outcome: Successful Performed By: Sujey Albarado
--- NOTE | 2023-08-26 10:40 | W.PM.OP ---
Date of service: 08/26/23 Time of Service: 08:30 Operative Note Operative Note DATE OF PROCEDURE: 08/26/23 PRE-OP DIAGNOSIS: Right knee medial compartmental arthritis POST-OP DIAGNOSIS: same PROCEDURE: Right knee medial unicompartmental arthroplasty, CPT # 37684 The assistant wrestling coach was medically required as this procedure involves retraction, protection of neurovascular structures, and manipulation of multiple instruments and implants at the same time, which cannot be done without a skilled assistant wrestling coach. SURGEON: Truman Hansen HEARING AID REPAIRER: Alice Banerjee ANESTHESIA TYPE: Local By Surgeon, Spinal and Primary Nerve Block Refer to Anesthesia Record ESTIMATED BLOOD LOSS: 75 TOURNIQUET TIME: 0 COMPLICATIONS: None Patient was transported to: PACU Patient's condition: stable Implants: DePuy Sigma HP partial knee size 2 metal-backed tibial tray, 8 mm tibial insert fixed bearing, size 3 femoral component Indications: Please see complete medical record for details. Findings: Medial compartment arthritis, preserved lateral compartment, intact ACL, mild medial patellar facet chondromalacia. Trochlea cartilage intact. Procedure Description: The patient was taken to the operating room and transferred to the operating room table. Spinal anesthesia was induced. All bony prominences were well-padded. Preoperative antibiotics and 1 g TXA were administered. A tourniquet was placed loosely over padding high on the patient's thigh. The knee and lower extremity were prepped and draped in the usual sterile fashion. The correct patient, procedure, and side of the procedure were all verified prior to incision. A slightly medial of midline longitudinal approach was used to the knee extending from the superior pole the patella to the distal aspect of the tibial tubercle. The quadriceps tendon, patella borders, and patellar tendon were exposed. A full-thickness arthrotomy was performed starting splitting the quadriceps tendon and leaving a sleeve of tissue on the medial aspect of the patella and taking care to progress along the medial margin the patellar tendon. The MCL was elevated off the proximal medial tibia. The tibial alignment jig was set in place on the anterior medial aspect of the tibia and carefully adjusted to achieve proper alignment in the coronal and sagittal planes. Reciprocating saw was used to create the vertical cut at the medial aspect of the medial tibial eminence taking care to protect the ACL ligament footprint. The transverse cut was then done using the microsagittal saw through the jig taking care to retract and protect the MCL. The bone piece and cut were inspected and found to be appropriate for patient anatomy. A box rasp was used to clean up the cut especially the L component. The 7 mm spacer block was inserted and found to have good equal stability in full extension and 90 degrees of flexion with approximately 2 mm of joint space opening in 20-30 degrees of flexion. With the knee in extension, the tibial trial spacer block was used to zuhair the rotational alignment and anterior extent of the femoral component. The spacer block was removed and the tibia was sized with the depth gauge. The distal femoral cutting block was inserted taking care to orient it appropriately. The cut was done using the saw through the guide. The guide was removed, and the femur was sized with the femoral sizing blocks. The appropriate sized posterior cutting block was selected and cut done, next the finishing block was appropriately oriented with the marked rotation from the tibial component through flexion extension. Care was taken to ensure the block was flush with the resected distal femur bone surface. A curved gouge was used to cut the profile of the proximal tip of the femoral prosthesis, zuhair the extent of the anterior chamfer cut, and prevent trochlear cartilage delamination. The anterior cut was done using osteotomes, the drill was used to drill the 2 peg holes, and the posterior chamfer cut was done through the jig. The cutting block and bone cuts were removed. The medial meniscus remnant was removed. The femoral component trial was placed on the distal femur and the 7 mm spacer block confirmed appropriate balancing in flexion, extension, and abou 2-3 mm of medial joint space opening in 20-30 degrees of flexion. Tibial template was inserted and the size confirmed to be appropriate. The keel was used by hand to remove bone from the slot and the tibial peg drill was used in the peg hole. The pulse lavage was used to clean the bone surfaces. SmartSet medium viscosity cement was prepared. At the appropriate time during the early working phase, the cement was applied to the backside of the tibial and femoral components. Then, cement was carefully placed and pressurized into the proximal tibia taking care to only have minimal cement posteriorly. The tibial component was inserted at an angle and then impacted directing pressure from posterior to anterior to keep the flow of cement from posterior to anterior. Cement was then applied to the distal femur and the femoral component impacted. Excess cement was removed. The knee was brought into full extension and this position with axial load was maintained until the cement was completely hardened at 20 minutes. A combination R.E.C.K. (123 mg Ropivacaine, 0.25 mg Epinephrine, 0.04 mg Clonidine, and 15 mg Ketorolac) 50 ml injection was widely infiltrated about the knee. The wound was copiously irrigated with the pulse lavage and Surgiphor. The tibia was tested, it was felt to be slightly lax so an 8 mm tibial trial spacer was inserted, and demonstrated excellent range of motion without restriction to full extension or deep flexion, about 2 mm opening and mild flexion. Tibial tray manager monitoring was removed, and the final tibial insert was inserted and clicked into place. The knee was tested through range of motion found to be stable with equal balancing from full extension to flexion past 90 degrees and a couple millimeters of medial joint space opening in 20-30 degrees of flexion. Appropriate hemostasis was achieved. The capsule was approximated using #1 Vicryl in a figure-of-8 interrupted fashion and then closed using Stratafix #1 PDS barbed suture in a running fashion. The superficial layers were irrigated. Subcutaneous tissue was closed using 2-0 Monocryl in a buried interrupted fashion. Skin was closed using 3-0 Monocryl in a buried subcuticular fashion. The skin incision was glued and then covered with a Mepilex Ag dressing. An Walter wrap was applied from the foot up to the thigh. The patient awoke from anesthesia without complication was transferred to the recovery room in stable condition.
[2023-08-26] MEDS: ceFAZolin 1 GM/50 ML BAG IVPB (11:40)
--- NOTE | 2023-08-26 11:50 | DI.RAD_ITS ---
Exam(s) XR KNEE RT 2V AP,LAT EXAM: XR KNEE RT 2V AP,LAT INDICATION: Knee arthritis. COMPARISON: CR XR KNEE RT 3V AP,LAT,MARIBETH from 03/03/2023 TECHNIQUE: 2D digital imaging was performed. Two views. FINDINGS: A medial femoral tibial joint space prosthesis has been placed. The alignment appears satisfactory. There is residual postsurgical air in the soft tissues. DATA REPOSITORY: RADIATION DOSE DELIVERED:
--- NOTE | 2023-08-26 13:45 | IN_ITS ---
PT Notes Physical Therapy Day Surgery Initial Evaluation Date: 08/26/2023 Referring Doctor: Truman Hansen MD PT Orders: PT CONSULT: S/P ortho surgery. WBAT R LE with assist device as needed Precautions: WBAT on R LE with AD. Patient Profile/Admitting Diagnosis: Patient is an 78-year-old female with R knee medial compartment arthritis and R knee meniscal tear. She is S/P R knee medial compartment arthroplasty on postoperative day 0. PMHX: All Active Problems Retinopathy (Acute) Arthritis of knee, right (Acute) Right knee meniscal tear (Acute) Internal derangement of right knee (Acute) Thyroid nodule (Acute 09/14/22) 1.3 sm isthumus thyroid [facility] [place] referrred to Endo for u/s guided FNA 01/12/23 F/u Endocrinology COVID (Acute ~09/10/22) Malignant neoplasm of upper-inner quadrant of right breast in female, estrogen receptor positive (Chronic) [facility] RAD ONC 02/02/22 note 02/16/22 F/u with Dr Goodman 02/23/22 cont xrt, 03/11/[address] in 6m at 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) History of colon polyps (Acute) Fracture of phalanx of little finger (Acute) Reports fracture of right little fingerFracture of toe (Acute) Reports falling injury Injured second toes on left and right feet on separate occasions between 2014- 2016 History of removal of cyst (Acute) Removal of sebaceous cyst from anterior chest Benign neoplasm of colon (Acute 06/15/13) Other and unspecified hyperlipidemia (Acute 01/09/13) PCEq 17.9%; LDL baseline 152 Essential hypertension (Acute 01/10/13) goal 150/90 Medical History 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 [place] [facility] right hip replacement (07/20/17) DOS: 06/15/16 Dr. Sadler Social History/Home Situation: Lives alone in a private home with 2 steps to enter without rails. Independent with all aspects of ADLs prior to surgery. Equipment Owned/DME: FWW, Bilateral axillary crutches Subjective: Patient reports mild ache in the R knee and thigh with exercises and walking. Denies headache, chest pain, and lightheadedness. Objective: General Observation: Resting in bed. ANDREA wraps to R LE. TEDS to L leg. Mental Status: A nd O x 4 Pain: 1-2/10 in R knee ROM: Right Lower Extremity: Hip flexion WFL. Hip abduction WFL. Knee flexion 0-100 degrees. Ankle dorsiflexion WFL. Ankle plantarflexion WFL. Left Lower Extremity: Hip flexion WFL. Hip abduction WFL. Knee flexion WFL. Ankle dorsiflexion WFL. Ankle plantarflexion WFL. Strength: Right Lower Extremity: Hip flexors 4/5. Hip abductors 4/5. Knee flexors 3-/5. Knee extensors 3+/5. Ankle dorsiflexors 5/5. Ankle plantarflexors 5/5. Left Lower Extremity:Hip flexors 5/5. Hip abductors 5/5. Knee flexors 5/5. Knee extensors 5/5. Ankle dorsiflexors 5/5. Ankle plantarflexors 5/5. Sensation: Intact as to pain and light pressure in B LE Bed Mobility/Transfers: Moderate cueing provided for use of B hands as needed for support, movement sequence, Ad management, and and posture to reduce fall risk and minimize pain report. Supine to sit stand by assist Sit to stand contact guard assist Stand to sit stand by assist Bed to chair stand by assist Gait: Facilitated safe and correct performance of level surface ambulation covering a distance of 150 feet with step-through reciprocal heel-toe gait pattern requiring only standby assist with minimal verbal cueing provided for posture AD management and correct gait pattern. Stairs: Guided patient with safe and correct negotiation of three x 4 inch steps and two x 6 inch steps while holding onto 1 rail on the right side going up and using a single-point cane with the other hand with minimal verbal cueing provided for correct gait pattern and AD management. Balance: Static Sitting: Normal Dynamic Sitting: Normal Static Standing: Fair Dynamic Standing: Fair Special Tests: Mobility Limitations Standardized Measure [facility] 6 clicks Basic Mobility Inpatient Short Form: Raw Score: 23 CMS Score: 11% deficit Informed Consent/Education: Patient instructed in purpose of PT consult. Packet containing partial TKA exercise protocol has been given to patient. Education and training on initial set of exercises that can be done at home have been completed with patient. Trained patient with correct performance of exercises below to maximize motor control, joint flexibility, soft tissue extensibility of the R knee musculature: Access Code: [email or web address] URL: [email or web address] Date: Prepared by: Josy Garcia Exercises - Supine Quad Set - 1 x daily - 7 x weekly - 1 sets - 10 reps - 5 hold - Supine Heel Slide - 1 x daily - 7 x weekly - 1 sets - 10 reps - 5 hold - Supine Ankle Pumps - 1 x daily - 7 x weekly - 1 sets - 10 reps - 5 hold - Small Range Straight Leg Raise - 1 x daily - 7 x weekly - 1 sets - 10 reps - 5 hold - Seated March - 1 x daily - 7 x weekly - 1 sets - 10 reps - 5 hold Assessment: Patient requires the use of a front wheeled walker for mobility ADL performance maximize independence and reduce fall risk. Patient presents with clinical signs and symptoms consistent with current/admitting diagnoses that have resulted to mobility limitations, gait instability, generalized weakness, and impairment of motor control as demonstrated by the following impairment level findings: 1. Decreased strength to left knee major muscle groups 2. Impaired standing balance 3. Limitation of joint range of motion in left knee Impairments are contributing to the following functional limitations: 1. Inability to safely ambulate without assistive device 2. Increase completion time for mobility ADL performance 3. Increased fall risk Patient is assessed as a 10577 moderate complexity based on the following: History: 78-year-old female with impairment level findings, functional limita tions, and past medical history as indicated above Examination: Demonstrable impairment in strength, balance, and mobility level with underlying impairments and functional limitations as documented above Presentation: Evolving Decision Makin moderate complexity Goals: N/A. PT evaluation and 1-2 treatment sessions only for functional mobility training using recommended AD and for HEP instruction. Plan of Care/Treatment Plan: N/A. PT evaluation and 1-2 treatment session only for functional mobility training using recommended AD and for HEP instruction. DISCHARGE RECOMMENDATIONS: Home when medically cleared by orthopedic surgeon. Recommend outpatient PT services in order to optimize functional mobility outcomes and facilitate return to independent community ambulation without an assistive device. TREATMENT CODE/TIME: 57685 x 29 minutes for 1 unit beginning at 13:45 PM. Thank you for the opportunity to participate in the care of this patient. Josy Garcia PT, DPT, CLT [facility] [place], [place]
--- NOTE | 2023-08-26 14:13 | W.ANESPOSTOP ---
Postoperative Evaluation Date, Time and Location Date Performed: 08/26/23 Time Performed: 12:32 Patient Location: Day Surgery Unit Vital Signs Most Recent Imported Vital Signs: Most Recent Vital Signs Temp Pulse Resp BP Pulse Ox 36.3 C L 72 16 163/70 H 98 08/26/23 13:25 08/26/23 13:25 08/26/23 13:25 08/26/23 13:25 08/26/23 13:25 Pain Score Most Recent Pain Score: Most Recent Pain Score Pain Level 2 08/26/23 13:25 Assessment Mental Status: Awake (Alert & Oriented to Patient Baseline) Airway and Respiratory Function: Patent airway with normal (patient baseline) respiratory exam Cardiovascular Function: Hemodynamically Stable Hydration Status: Adequately Hydrated Nausea & Vomiting: No Nausea or Vomiting Pain: Pain is tolerable per patient Peripheral Nerve Block: Regional nerve block not resolved at time of post operative discharge Teaching Patient Teaching: Discussed Safe Use of Pain Medication Given Recent Anesthesia
--- NOTE | 2023-08-26 17:29 | NUR.NOTE ---
1628:Pt. called and informed pt. that MD wants her to avoid showering, he doesnt trust band aid and showers are slippery and dangerous. Pt. states she understands. Nursing Note:
== END 2023-08-26 14:56 | disposition home or self-care (01) ==
LOC: SUR 06:02
PROVIDERS: PCP Nurse Practitioner; Visit Provider Student in an Organized Health Care Education/Training Program
PROC: (CPT 27446; principal; 2023-08-26 07:45)
DX: M17.11 Unilateral primary osteoarthritis, right knee (principal)
CPT/HCPCS: 27446; C1776; 76942; 97162; 73560; J0690; J1100; J2001; J2250; J2371; J2405

== ENCOUNTER → 2023-09-01 08:49 | Outpatient (BNVA) | payer MEDICARE, BC, SELFPAY | PROVIDERS: PCP Nurse Practitioner; Referring Provider Nurse Practitioner | DX: Z47.1 Aftercare following joint replacement surgery (principal); Z96.651 Presence of right artificial knee joint ==

== ENCOUNTER 2023-09-06 10:14 | Outpatient (CLI) | payer MEDICARE, BC, SELFPAY ==
--- NOTE | 2023-09-06 10:20 | DI.RAD_ITS ---
Exam(s) XR KNEE RT 2V AP,LAT EXAM: XR KNEE RT 2V AP,LAT INDICATION: F/U RIGHT UKA. COMPARISON: CR XR KNEE RT 2V AP,LAT from 08/26/2023 TECHNIQUE: 2D digital imaging was performed. Two views. FINDINGS: There has been no change in the alignment of the medial femoral tibial joint space prosthesis. Some anterior soft tissue swelling remains present. DATA REPOSITORY: RADIATION DOSE DELIVERED:
== END 2023-09-06 10:15 | disposition home or self-care (01) ==
LOC: DIORS 10:14
PROVIDERS: PCP Nurse Practitioner; Referring Provider Nurse Practitioner; Visit Provider Physician Assistant
DX: Z47.1 Aftercare following joint replacement surgery; Z96.651 Presence of right artificial knee joint
CPT/HCPCS: 73560

== ENCOUNTER 2023-11-08 11:35 | Outpatient (CLI) | payer MEDICARE, BC, SELFPAY ==
--- NOTE | 2023-11-08 09:30 | DI.RAD_ITS ---
Exam(s) XR KNEE RT 2V AP,LAT EXAM: XR KNEE RT 2V AP,LAT INDICATION: F/U RIGHT UKA. COMPARISON: CR XR KNEE RT 2V AP,LAT from 09/06/2023 TECHNIQUE: 2D digital imaging was performed. Two views. FINDINGS: There has been no change in the medial femoral tibial joint space prosthesis. No abnormal surroundin g lucencies. Mild degenerative changes noted at the patellofemoral joint. Enthesophyte at upper damaris e patella. Impression: Stable appearance of medial femoral tibial joint space prosthesis. DATA REPOSITORY: RADIATION DOSE DELIVERED:
== END 2023-11-08 11:36 | disposition home or self-care (01) ==
LOC: DIORS 11:35
PROVIDERS: PCP Nurse Practitioner; Visit Provider Student in an Organized Health Care Education/Training Program
DX: Z96.651 Presence of right artificial knee joint (principal); Z47.1 Aftercare following joint replacement surgery
CPT/HCPCS: 73560

== ENCOUNTER 2023-12-27 14:18 | Outpatient (CLI) | payer MEDICARE, BC, SELFPAY ==
--- NOTE | 2023-12-27 09:15 | DI.RAD_ITS ---
Exam(s) XR KNEE LT 3V AP,LAT,MARIBETH EXAM: XR KNEE LT 3V AP,LAT,MARIBETH CLINICAL HISTORY: LEFT KNEE PAIN. TECHNIQUE: 2D digital imaging was performed. Three views. COMPARISON: CR XR KNEE RT 2V AP,LAT from 11/08/2023 FINDINGS: BONES: No acute fracture is present. No bony destructive lesion is seen. Enthesophyte at quadricep s insertion on the patella. JOINTS: The moderate narrowing of the medial femoral tibial joint space and periarticular spurring. The lateral femoral tibial joint space is maintained. No joint effusion is seen. SOFT TISSUE: Venous varicosities. IMPRESSION: Moderate degenerative changes medial femoral tibial joint space. DATA REPOSITORY: RADIATION DOSE DELIVERED:
== END 2023-12-27 14:19 | disposition home or self-care (01) ==
LOC: DIORS 14:18
PROVIDERS: PCP Nurse Practitioner; Visit Provider Student in an Organized Health Care Education/Training Program
DX: Z47.1 Aftercare following joint replacement surgery; M17.12 Unilateral primary osteoarthritis, left knee; Z96.651 Presence of right artificial knee joint
CPT/HCPCS: 73562; 99213

== ENCOUNTER → 2024-01-05 01:18 | Outpatient (CLI) | payer MEDICARE, BC, SELFPAY ==
--- NOTE | 2024-01-05 | DI.CT_ITS ---
Exam(s) CT CHEST W EXAM: CT CHEST W CLINICAL HISTORY: LUNG NODULE R91.1 TECHNIQUE: Imaging Protocol: Axial computed tomography images with coronal and sagittal reformatted images were created and reviewed CONTRAST MATERIAL: Intravenous: Omnipaque 350Contrast volume:70 mL. COMPARISON: CT CT CHEST W from 01/17/2023 MG MG MAMMO SCREENING 60 MIN DUR from 08/15/2023 FINDINGS: Tracheobronchial tree: Patent where visualized. Pulmonary parenchyma: No consolidation or dominant measurable mass. There is stable interstitial thic kening along the periphery of the right upper lobe. No new pulmonary nodules are seen. There is a s table 3-4 mm nodule in the anterior aspect of the left upper lobe (series 3, image 114). Mediastinum and Barby: No dominant adenopathy or fluid collection. The esophagus is unremarkable. Thyroid gland: Multiple thyroid nodules are present. These are stable compared to the prior examinat ion. The largest nodule is in the inferior aspect of the right lobe and measures 1.6 x 1.8 cm. None mergent thyroid ultrasound may be obtained if. Pleura: No effusion or pneumothorax. Heart: The heart is not dilated. Coronary artery calcifications are present. No pericardial effusion . Mitral annular calcifications are present. Aorta: Thoracic aorta non-dilated. Atherosclerotic calcification is present. Pulmonary arteries: Pulmonary emboli cannot be evaluated due to the timing of the bolus and decreased opacification of the pulmonary arteries. Upper abdomen: There is a stable tiny hypodensity in the dome of the right lobe of the liver. It is too small for further characterization but likely reflects a small cyst. Lymph nodes: Within normal limits. Bones: Within normal limits for the patient's age. Soft tissues: The patient is status post right lumpectomy. IMPRESSION: 1. Stable left upper lobe pulmonary nodule. 2. No new pulmonary nodules. 3. Stable pleural and parenchymal scarring in the upper lobes as described above. 4. Multinodular thyroid gland. Nonemergent thyroid ultrasound may be obtained. RADIATION DOSE DELIVERED: 535.48mGy.cm Total DLP DATA REPOSITORY: All CT scans at this facility are submitted to the National Radiology Data Registry (NRDR) Dose Index Registry (DIR) with the [employer] (A[employer]). RADIATION OPTIMIZATION: All CT scans at this facility use at least one of these dose optimization te chniques: automated exposure control; mA and/or kV adjustment per patient size (includes targeted exa ms where dose is matched to clinical indication); or iterative reconstruction.
[2024-01-05 14:42] LABS: Estimated GFR 56.95 (mL/min/1.73m2)
[2024-01-05] MEDS: Normal Saline - Diluent 50 ML VIAL IJ (15:06)
[2024-01-05] MEDS: Omnipaque 350 MG/ML 100 ML BTL 70 ML IJ (15:07)
== END ==
PROVIDERS: PCP Nurse Practitioner; Visit Provider Radiology Radiation Oncology
DX: R91.1 Solitary pulmonary nodule (principal); J94.8 Other specified pleural conditions; E04.2 Nontoxic multinodular goiter
CPT/HCPCS: 71260; 82565; J3490

== ENCOUNTER → 2024-02-16 11:20 | Outpatient (BNVA) | payer MEDICARE, BC, SELFPAY | PROVIDERS: PCP Nurse Practitioner; Referring Provider Nurse Practitioner; Visit Provider Physical Therapy Assistant | DX: Z12.11 Encounter for screening for malignant neoplasm of colon (principal); Z86.010 Personal history of colon polyps; Z80.0 Family history of malignant neoplasm of digestive organs ==

== ENCOUNTER 2024-03-06 06:09 | Day surgery (SDC) | payer MEDICARE, BC, SELFPAY ==
--- NOTE | 2024-03-05 20:49 | PDOC.DSDIS_ITS ---
Date of service: 03/06/24 Time of Service: 09:23 Discharge Plan Disposition Patient Disposition: Home Condition: Good Discharge Details Reason For Visit: colon scope Attending Provider: Odette Romano Primary Care Provider: Heaven Sousa Home Meds and New Rx's Prescriptions: Continued atorvastatin [Lipitor] 40 mg tablet 40 mg PO QPM Qty: 90 3RF Trulicity 0.75 mg/0.5 mL pen injector 0.75 mg subcut QWEEK Qty: 6 3RF (DME) blood-glucose meter [Blood Glucose Monitoring] Kit See Rx Instructions .ROUTE .MEDSUPPLY Qty: 1 0RF Rx Instructions: Test daily. VERIO. exemestane 25 mg tablet 25 mg PO DAILY Rx Instructions: must administer after a meal doxycycline hyclate 100 mg capsule 200 mg PO ONCE PRN (Reason: tick bite) Qty: 20 3RF valsartan-hydrochlorothiazide 160-25 mg tablet 1 tab PO DAILY Qty: 90 3RF multivitamin [Daily Multi-Vitamin] 1 EACH tablet 1 ea PO DAILY (DME) Blood Glucose Test Strip See Rx Instructions .ROUTE .MEDSUPPLY Qty: 150 3RF Rx Instructions: As directed to check blood glucose daily. No insulin. Dispense covered brand. metoprolol succinate 100 mg tablet extended release 24 hr See Rx Instructions .ROUTE .COMPLEX Qty: 90 3RF Dose Instruction: TAKE 1 TABLET DAILY FOR HIGH BLOOD PRESSURE Rx Instructions: TAKE 1 TABLET DAILY FOR HIGH BLOOD PRESSURE aspirin 81 mg tablet,delayed release (DR/EC) 81 mg PO DAILY Discontinued bisacodyl [Dulcolax (bisacodyl)] 5 mg tablet,delayed release (DR/EC) 5 mg PO ONCE Qty: 4 0RF Rx Instructions: Take per colonoscopy instructions provided by ordering providers office polyethylene glycol 3350 17 gram/dose powder 17 g PO ONCE Qty: 238 0RF Rx Instructions: Take per colonoscopy instructions provided by ordering providers office Discharge Instructions Additional Instructions: DSU Colonoscopy Post- Op Instructions Instructions for Everyone who is given Anesthesia: For your safety, please do the following for the next twenty-four (24) hours: *Do Not operate a motor vehicle (car, truck, motorcycle, etc.) *Do Not drink alcoholic beverages or use any recreational drugs for the first 24 hours or while taking pain medications. The medications in your body may have a reaction that can be dangerous. *Do Not make any important decisions or sign any important papers. Findings: Polyps and diverticula Follow up: -Regarding the diverticula: Make sure you are moving your bowels on a regular basis and you are not straining to go to the bathroom. If you find that you are having problems with constipation or irregularity, then it is recommended you start a fiber product daily such as Metamucil or psyllium husk's. -My office will send you a letter in 3 to 4 weeks time with the results of the polyps. At this point I do not recommend any further colonoscopies. 1. No lifting over 20 pounds or strenuous activity for the first 24 hours after your procedure. After 24 hours there are no restrictions on your activity but you may feel fatigued for a few days. 2. After you arrive home you may have a light meal and return to your normal diet as you can tolerate it without feeling sick to your stomach. 3. You may have a bloated, gaseous feeling in your belly (abdomen) after a co lonoscopy. Passing gas and belching will help. Walking or lying down on your left side with your knees flexed may relieve the discomfort. Call the office at [phone] (Office) or [phone] (Hospital) right away if you notice any of the following: a.Vomiting of blood or ?coffee ground stools?. b.Rectal bleeding 1Tbsp, blood clots or continuous bleeding. c.Severe belly (abdominal) pain. d.A hard distended belly (abdomen) and an inability to pass gas. 4. Please don?t expect to have a normal BM (bowel movement) for 2-3 days after your procedure. 5. If there are questions regarding the findings of your procedure, please contact your doctor 6. If you are unable to contact your doctor with a problem, contact the hospital at [phone]. 7. Continue all your regular medications unless directed otherwise. I understand the above instructions and have no questions. Signature of Patient or Adult Escort Name of Responsible Adult Escort Signature of Nurse Date/Time Activity:: see above Diet:: see above Discharge Orders Discharge Orders: Discharge Order (Routine); Ordered 03/06/24 Ordered By: Odette Romano DS: Diagnosis Discharge Diagnosis (1) Essential hypertension: Status: Acute (2) Other and unspecified hyperlipidemia: Status: Acute (3) Diabetes type 2, controlled: Status: Acute (4) Retinopathy: Status: Acute (5) Invasive carcinoma of breast: Status: Acute (6) Status post right partial knee replacement: Status: Acute (7) Adenomatous polyps: Status: Acute Asessment and Plan: The patient is seen and examined after their colonoscopy.? The patient has been able to pass gas.? They are not having abdominal pain.? They have been able to tolerate liquids and a snack.? They do not have any nausea or vomiting.? They are not having any chest pain or shortness of breath.??? They are not having any rectal bleeding. Their vital signs have been stable-see nursing notes. We discussed findings during their colonoscopy, and any biopsies that were done/polyps that were removed. The patient will be sent a letter with any biopsy results, and when to repeat the colonoscopy.-see discharge instructions. Patient was given explicit instructions to follow-up regarding colonoscopy-refer to discharge instructions.? We reviewed resumption of medications. Patient verbalized understanding and discharged in stable and satisfactory condition- See nursing notes. (8) Diverticula of colon: Status: Acute
--- NOTE | 2024-03-05 20:52 | PDOC.DSDIS_ITS ---
Discharge Plan Disposition Patient Disposition: Home Condition: Good Discharge Details Reason For Visit: colon scope Attending Provider: Odette Romano Primary Care Provider: Heaven Sousa Home Meds and New Rx's Prescriptions: Continued atorvastatin [Lipitor] 40 mg tablet 40 mg PO QPM Qty: 90 3RF Trulicity 0.75 mg/0.5 mL pen injector 0.75 mg subcut QWEEK Qty: 6 3RF (DME) blood-glucose meter [Blood Glucose Monitoring] Kit See Rx Instructions .ROUTE .MEDSUPPLY Qty: 1 0RF Rx Instructions: Test daily. VERIO. exemestane 25 mg tablet 25 mg PO DAILY Rx Instructions: must administer after a meal doxycycline hyclate 100 mg capsule 200 mg PO ONCE PRN (Reason: tick bite) Qty: 20 3RF valsartan-hydrochlorothiazide 160-25 mg tablet 1 tab PO DAILY Qty: 90 3RF multivitamin [Daily Multi-Vitamin] 1 EACH tablet 1 ea PO DAILY (DME) Blood Glucose Test Strip See Rx Instructions .ROUTE .MEDSUPPLY Qty: 150 3RF Rx Instructions: As directed to check blood glucose daily. No insulin. Dispense covered brand. metoprolol succinate 100 mg tablet extended release 24 hr See Rx Instructions .ROUTE .COMPLEX Qty: 90 3RF Dose Instruction: TAKE 1 TABLET DAILY FOR HIGH BLOOD PRESSURE Rx Instructions: TAKE 1 TABLET DAILY FOR HIGH BLOOD PRESSURE aspirin 81 mg tablet,delayed release (DR/EC) 81 mg PO DAILY Discontinued bisacodyl [Dulcolax (bisacodyl)] 5 mg tablet,delayed release (DR/EC) 5 mg PO ONCE Qty: 4 0RF Rx Instructions: Take per colonoscopy instructions provided by ordering providers office polyethylene glycol 3350 17 gram/dose powder 17 g PO ONCE Qty: 238 0RF Rx Instructions: Take per colonoscopy instructions provided by ordering providers office Discharge Instructions Additional Instructions: DSU Colonoscopy Post- Op Instructions Instructions for Everyone who is given Anesthesia: For your safety, please do the following for the next twenty-four (24) hours: *Do Not operate a motor vehicle (car, truck, motorcycle, etc.) *Do Not drink alcoholic beverages or use any recreational drugs for the first 24 hours or while taking pain medications. The medications in your body may have a reaction that can be dangerous. *Do Not make any important decisions or sign any important papers. Findings: Follow up: 1. No lifting over 20 pounds or strenuous activity for the first 24 hours after your procedure. After 24 hours there are no restrictions on your activity but you may feel fatigued for a few days. 2. After you arrive home you may have a light meal and return to your normal diet as you can tolerate it without feeling sick to your stomach. 3. You may have a bloated, gaseous feeling in your belly (abdomen) after a colonoscopy. Passing gas and belching will help. Walking or lying down on your left side with your knees flexed may relieve the discomfort. Call the office at [phone] (Office) or [phone] (Hospital) right away if you notice any of the following: a.Vomiting of blood or ?coffee ground stools?. b.Rectal bleeding 1Tbsp, blood clots or continuous bleeding. c.Severe belly (abdominal) pain. d.A hard distended belly (abdomen) and an inability to pass gas. 4. Please don?t expect to have a normal BM (bowel movement) for 2-3 days after your procedure. 5. If there are questions regarding the findings of your procedure, please contact your doctor 6. If you are unable to contact your doctor with a problem, contact the hospital at [phone]. 7. Continue all your regular medications unless directed otherwise. I understand the above instructions and have no questions. Signature of Patient or Adult Escort Name of Responsible Adult Escort Signature of Nurse Date/Time Activity:: see above Diet:: see above Discharge Orders Discharge Orders: Discharge Order (Routine); Ordered 03/06/24 Ordered By: Odette Romano DS: Diagnosis Discharge Diagnosis (1) Essential hypertension: Status: Acute (2) Other and unspecified hyperlipidemia: Status: Acute (3) Diabetes type 2, controlled: Status: Acute (4) Retinopathy: Status: Acute (5) Invasive carcinoma of breast: Status: Acute (6) Status post right partial knee replacement: Status: Acute (7) Adenomatous polyps: Status: Acute
--- NOTE | 2024-03-05 20:53 | W.PM.OP ---
Operative Note Operative Note PRE-OP DIAGNOSIS: adenomatous polyp SURGEON: Odette Romano ANESTHESIA TYPE: General:No Airway Refer to Anesthesia Record COMPLICATIONS: None Patient was transported to: same day Procedure Description: After informed consent was obtained the patient was taken to the procedure room and placed in a left decubitous position. Monitors were applied and a time out was done. The patients name, date of , procedure, allergies to medications and metal in their body was reviewed. The patient was then sedated. Once sedated and comfortable a rectal exam was done. External exam was normal. Internal exam revealed a normal sphincter tone and no palpable masses. The prostate []. The scope was then introduced and retrofelexed. [] internal hemorrhoids were identified. The scope was then advanced to the cecum [] difficulty. The TI and appendiceal orifice were identified. The prep was []. The scope was then slowly retracted over [] minutes back into the rectum. Polyps were removed at []. The scope was removed and the patient was woken up and taken back to Same day surgery in stable condition. The patient tolerated the procedure well and there were no immediate complications. Follow up: The patient should follow up in [] years unless they develop changes in bowel habits or other new gastrointestinal complaints.
[2024-03-06 06:25] VITALS: BP 171/86; PULSE 77; RESP 16; TEMP 36.6; O2SAT 97
[2024-03-06] MEDS: Lactated Ringers 1,000 ML 80 ML IV (06:34)
--- NOTE | 2024-03-06 06:50 | W.ANESPRE ---
General Info Date of Service Date Performed: 03/06/24 Height: 5 ft 9 in Weight: 83.461 kg Body Mass Index (BMI): 27.1 Surgical Procedure: Operation Date: 03/06/24 07:35 Proposed Procedure Side Surgeon sukumar Romano, DO Meds Allergies and Home Medications Allergies Allergy/AdvReac Type Severity Reaction Status Date / Time No Known Allergies Allergy Verified 03/06/24 06:18 Home Medication Medication Instructions Recorded multivitamin (Daily Multi-Vitamin 1 ea PO DAILY 01/21/16 tablet) exemestane 25 mg tablet 25 mg PO DAILY 04/20/23 doxycycline hyclate 100 mg capsule 200 mg (2 x 100 mg) PO ONCE PRN 07/13/23 tick bite #20 caps valsartan 160 1 tab PO DAILY #90 tabs 08/15/23 mg-hydrochlorothiazide 25 mg tablet aspirin 81 mg tablet,delayed 81 mg PO DAILY 08/26/23 release atorvastatin 40 mg tablet (Lipitor) 40 mg PO QPM #90 tabs 11/01/23 blood-glucose meter (Blood Glucose #1 ea 11/01/23 Monitoring kit) dulaglutide 0.75 mg/0.5 mL 0.75 mg (0.5 mL) subcut QWEEK #6 mL 11/01/23 subcutaneous pen injector ([employer]) blood sugar diagnostic (Blood #150 ea 11/07/23 Glucose Test strips) metoprolol succinate 100 mg See Rx Instructions .Route 11/14/23 tablet,extended release 24 hr .COMPLEX #90 tabs Current Visit Medications: Current Medications Generic Name Dose Route Start Last Admin Trade Name Freq PRN Reason Stop Dose Admin Hyoscyamine Sulfate 0.125 mg 03/06/24 08:47 Hyoscyamine 0.125 Mg Sl/Oral/Chew SL 04/05/24 08:46 DIRECTED PRN Ringer's Solution 1,000 mls @ 80 mls/hr 03/06/24 06:00 03/06/24 06:34 IV 03/06/24 23:59 80 mls/hr INFUSION JENNIFER Administration IV Miscellaneous Supplies 1 each 03/06/24 06:00 Iv Access IV 03/06/24 23:59 DIRECTED JENNIFER Ondansetron HCl 4 mg 03/06/24 08:47 Ondansetron 4 Mg/2 Ml Vial IVP 04/05/24 08:46 Q4H PRN PRN Nausea / Vomiting Sodium Chloride 0 ml 03/06/24 06:00 Normal Saline Flush 10 Ml Syr IV 03/06/24 23:59 PRN PRN Sodium Chloride 0 ml 03/06/24 06:00 Normal Saline 10 Ml Vial IJ 03/06/24 23:59 DIRECTED PRN Sterile Water 0 ml 03/06/24 06:00 Water,Injection,Sterile 10 Ml Vial IJ 03/06/24 23:59 DIRECTED PRN PFSH Active Problems Active Problems: Problem Status Onset Code Adenomatous polyps D36.9 Osteoarthritis of left knee M17.12 Status post right partial knee replacement Z96.651 Retinopathy H35.00 Arthritis of knee, right M17.11 Right knee meniscal tear S83.206A Internal derangement of right knee M23.91 Thyroid nodule 09/14/22 E04.1 COVID ~09/10/22 U07.1 Malignant neoplasm of upper-inner quadrant of right breast in female, estrogen receptor positive C50.211, Z17.0 Invasive carcinoma of breast 11/19/21 C50.919 Abdominal pain R10.9 Osteopenia M85.80 Elevated BUN R79.9 Proteinuria, unspecified R80.9 Hematuria R31.9 Burning tongue syndrome Achilles tendinosis of right lower extremity M67.88 Cerumen impaction H61.20 Diabetes type 2, controlled E11.9 Inflamed seborrheic keratosis L82.0 Actinic keratosis L57.0 Keratosis, seborrheic L82.1 Personal history of other malignant neoplasm of skin Z85.828 Chondromalacia, left knee M94.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 Derangement of medial meniscus of left knee M23.304 History of colon polyps Z86.010 Fracture of phalanx of little finger S62.608A Fracture of toe S92.919A History of removal of cyst Z98.890 Right hip pain 01/21/16 M25.551 Benign neoplasm of colon 06/15/13 D12.6 Other and unspecified hyperlipidemia 01/09/13 E78.5 Essential hypertension 01/10/13 I10 Osteoarthritis of right hip M16.11 Medical History Medical History History of radiation therapy (~03/02/22) 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 states spinal wore off during hip surgery Surgical History Surgical History Status post partial mastectomy of right breast (~11/19/21) [place], [place] Dr Raimundo Hernandez MD Chemo radiation last 2021 Status post tubal ligation H/O dilation and curettage Status post bilateral cataract extraction Status post arthroscopy of left knee 2006 Dr. Dany [place], [place] Status post right hip replacement (07/20/17) DOS: 06/15/16 Dr. Sadler Tobacco Smoking/Tobacco Use Status: Never Alcohol Alcohol Intake: current Alcohol intake frequency: holidays/special occasions only Alcohol type: wine Substance Use Substance use: Never Substance use type: does not use Vital Signs and Lab Results Vital Signs Most Recent Vital Signs in EMR: Most Recent Vital Signs Temp Pulse Resp BP Pulse Ox 36.6 C 77 16 171/86 H 97 03/06/24 06:25 03/06/24 06:25 03/06/24 06:25 03/06/24 06:25 03/06/24 06:25 Lab Results Blood Type / Crossmatch: No Data to Display Complete Blood Count: No Data to Display Complete Metabolic Panel: No Data to Display Liver Function Panel: No Data to Display Coagulation Panel: No Data to Display Cardiac Panel: No Data to Display Arterial Blood Gas: No Data to Display Venous Blood Gas: No Data to Display Pancreas Panel: No Data to Display Thyroid Panel: No Data to Display Infectious Disease: No Data to Display Blood Cultures: No Data to Display Toxicology Panel: No Data to Display Imaging and Studies Imaging and Studies Study information below may be from another EMR and interpreted by another provider. Please see original notes in EMR for more complete details. EKG Summary: EKG PATIENT NAME: Victoria Jennings UNIT #: [id number] ORDERING PROVIDER: Heaven Amanda NP PRIMARY CARE PROVIDER: HEAVEN AMANDA NP DATE/TIME OF SERVICE: 08/15/23 1532 : 1945 PERFORMING LOCATION: [facility] REPORT Exam: Resting ECG Reason for Exam: prior to surgery Patient Location: O HR:71 bpm ECG Measurements Heart Rate 71 AXIS [place] 197 P 66 QRSd 112 QRS -29 QT 418 T61 QTc 455 Conclusion Sinus rhythm...normal P axis, V-rate 50- 99 Probable left atrial enlargement...P >50mS, <-0.10mV V1 Incomplete right bundle branch block...QRSd >112, terminal axis(90,270) Left ventricular hypertrophy...multiple LVH criteria <Electronically signed by KIMBERLY GRAY MD in [place]> E-Sign Date: 08/16/23 E-Sign Time: 0807 Anesthesia Assessment and Plan Anesthesia History Personal History: No History of Anesthesia Complications Family History: No Family History of Anesthesia Complications Exercise Tolerance Exercise Tolerance: Metabolic Equivalents>4 Pertinent Negatives Pertinent Negatives: No Symptoms of GERD, No Major Cardiovascular Symptoms or Complaints and No History of CVA/TIA Cardiac & Pulmonary Exam Cardiac Exam: Normal S1/S2 Heart Sounds Pulmonary Exam: Clear Bilateral Breath Sounds Implantable Cardiac Device Does patient have a Pacemaker or an ICD?: No Airway Exam Known Difficult Airway: No Mallampati Class: 3 Mouth Opening: Narrow (< 3cm) Thyromental Distance: Greater than 3 cm Neck Range of Motion: Full ROM Neck Circumference: Normal Teeth Condition: Normal Dentition ASA Classification ASA Score: ASA 2 Emergency Case?: No NPO Status NPO Status: NPO Clears >2 hours, Solids >8 hours Anesthesia Plan Resuscitation Status: Full Code Anesthesia Technique: General Anesthesia Airway Planned: Natural Airway Monitors Used: Standard Monitors
[2024-03-06 07:20] VITALS: BMI 27.1
--- NOTE | 2024-03-06 07:55 | BOWEL_PTH ---
PATIENT: Victoria Jennings LOC: [facility] U#:[id number] AGE/SX: 78/F ROOM: RE03/06/[address]: Odette Romano : 1945 BED: DIS: 03/06/2024 SPEC #: [id number] RECD: 03/06/24 12:46 STATUS: GRACIELA REQ #: [id number] CHEKO: 03/06/24 07:[address]: Odette Romano DEPT: Surgical Specimen RECD BY: Sonya Betancourt ENTERED: 03/06/24 12:48 SP TYPE: Bowel OTHR DR: Heaven Sousa, RAÚL Tissues: 1 - BIOPSY BOWEL 2 - BIOPSY BOWEL Procedures: GROSS AND MICRO LEVEL 4 Comments: [id number]
[2024-03-06 08:10] VITALS: BP 102/61; PULSE 62; RESP 16; TEMP 36.3; O2SAT 97
--- NOTE | 2024-03-06 08:25 | W.ANESPOSTOP ---
Postoperative Evaluation Date, Time and Location Date Performed: 03/06/24 Time Performed: : Patient Location: Day Surgery Unit Vital Signs Most Recent Imported Vital Signs: Most Recent Vital Signs Temp Pulse Resp BP Pulse Ox 36.3 C L 62 16 102/61 97 03/06/24 08:10 03/06/24 08:10 03/06/24 08:10 03/06/24 08:10 03/06/24 08:10 Pain Score Most Recent Pain Score: Most Recent Pain Score Pain Level 0 03/06/24 08:10 Assessment Mental Status: Awake (Alert & Oriented to Patient Baseline) Airway and Respiratory Function: Patent airway with normal (patient baseline) respiratory exam Cardiovascular Function: Hemodynamically Stable Hydration Status: Adequately Hydrated Nausea & Vomiting: No Nausea or Vomiting Pain: Pt. Denies Any Pain Peripheral Nerve Block: Patient did not receive a nerve block
[2024-03-06 08:50] VITALS: BP 121/76; PULSE 65; RESP 16; TEMP 36.3; O2SAT 97
--- NOTE | 2024-03-06 17:46 | W.COLOREPORT ---
Date of service: 03/06/24 Time of Service: 08:30 Colonoscopy Report Date of procedure: 03/06/24 Pre-op diagnosis general: History of polyps/history of diverticular disease/family history of colon c Post-op diagnosis procedure note: same Surgeon: Odette Romano Anesthesia Type: General:No Airway Estimated blood loss (mL): 1 Pathology: other Complications: None Disposition: same day Prep: Miralax/Dulcolax Retraction Time: 9 Procedure Description: After informed consent was obtained the patient was taken to the procedure room and placed in a left decubitous position. Monitors were applied and a time out was done. The patients name, date of , procedure, allergies to medications and metal in their body was reviewed. The patient was then sedated. Once sedated and comfortable a rectal exam was done. External exam was normal. Internal exam revealed a normal sphincter tone and no palpable masses. The scope was then introduced and retrofelexed. No internal hemorrhoids were identified. The scope was then advanced to the cecum without difficulty. The TI and appendiceal orifice were identified. The scope was then slowly retracted over 9 minutes back into the rectum. She had a flat 0.5 cm polyp at 70 cm and at 60 cm. Both of these are removed with a cold biting forcep. All specimens are retrieved and no bleeding is noted. She does have severe multiple large mouth diverticula that do extend all the way to the transverse colon. There is no signs of active bleeding or infection. The mucosa is pink and healthy with a normal vascular pattern to the the scope was removed and the patient was woken up and taken back to Same day surgery in stable condition. The patient tolerated the procedure well and there were no immediate complications. Follow up: The patient does not require any further colonoscopies, unless they develop changes in bowel habits or other new gastrointestinal complaints. Houck Bowel Prep Houck Bowel Prep Right Colon: 3 Left Colon: 3 Transverse Colon: 3 Total Score: 9
== END 2024-03-06 09:40 | disposition home or self-care (01) ==
LOC: SUR 06:09
PROVIDERS: PCP Nurse Practitioner; Visit Provider Surgery
PROC: 0DJD8ZZ Inspection of Lower Intestinal Tract, Via Natural or Artificial Opening Endoscopic (ICD-10-PCS; CPT 45378; principal; 2024-03-06 07:30)
DX: Z12.11 Encounter for screening for malignant neoplasm of colon (principal); I10 Essential (primary) hypertension; E11.9 Type 2 diabetes mellitus without complications; K57.30 Diverticulosis of large intestine without perforation or abscess without bleeding; Z80.0 Family history of malignant neoplasm of digestive organs; K51.40 Inflammatory polyps of colon without complications
CPT/HCPCS: 45380; 88305; J2704

== ENCOUNTER 2024-08-20 01:28 | Outpatient (CLI) | payer MEDICARE, BC, SELFPAY ==
--- NOTE | 2024-08-20 11:24 | DI.MAMMO_ITS ---
Exam(s) MG MAMMO SCREENING 60 MIN DUR EXAM: MG MAMMO SCREENING 60 MIN DUR CLINICAL HISTORY: Screening, h/o malignant neoplasm of rt breast. TECHNIQUE: Bilateral full field digital CC and MLO mammographic images were obtained with 3D tomosyn thesis and utilizing computer aided detection (CAD). COMPARISON: Prior mammograms were reviewed. Patient right breast lumpectomy 2020 FINDINGS: There has been no significant change in the appearance and distribution of the fibroglandular tissue. Bilateral skin moles are again noted. No new findings in the region of the lumpectomy site right breast. No new spiculated masses nor new malignant-appearing microcalcification groups in either breast. There is no significant architectural distortion nor new skin thickening-retraction. IMPRESSION: Stable benign-appearing findings. No radiographic evidence of malignancy BI-RADS Category 2 - Benign Findings Breast Density - Category C - Heterogeneously dense Breast density Category C or D implies that the patient has dense breast tissue. Dense breast tissue can make it harder to find cancer on a mammogram. Dense breast tissue is also associated with an incr eased risk of breast cancer. This information about the result of the mammogram report was provided to the patient to raise their awareness. Use this report when you speak with the patient about their risks for breast cancer, which includes their family history. At that time, you may recommend additional screening tests (Ultrasoun d or MRI) as these tests may add significant information. A negative radiographic report should not delay biopsy if a dominant or clinically suspicious mass is present. Up to ten percent of cancers are not identified on mammography. A negative report may reinforce clinical impression. Adenosis and dense breasts may obscure an underlying neoplasm. False positive reports average 6 to 10%. Patient will receive a letter notifying them of these results.
== END 2024-08-20 01:48 ==
LOC: DI 01:28
PROVIDERS: PCP Nurse Practitioner; Visit Provider Surgery Surgical Oncology
DX: Z12.31 Encounter for screening mammogram for malignant neoplasm of breast (principal); D24.1 Benign neoplasm of right breast; R92.333 Mammographic heterogeneous density, bilateral breasts
CPT/HCPCS: 77063; 77067

== ENCOUNTER 2024-08-28 15:10 | Outpatient (CLI) | payer MEDICARE, BC, SELFPAY ==
--- NOTE | 2024-08-28 09:30 | DI.RAD_ITS ---
Exam(s) XR KNEE RT 2V AP,LAT EXAM: XR KNEE RT 2V AP,LAT CLINICAL HISTORY: F/U RIGHT [facility]. TECHNIQUE: 2D digital imaging was performed. Two images were obtained. AP and lateral views were ob tained. COMPARISON: CR XR KNEE RT 2V AP,LAT from 11/08/2023 FINDINGS: BONES: There are stable post operative changes of a unilateral right knee arthroplasty present. No f racture or dislocation. There is an enthesophyte at the superior patella. JOINTS: The orthopedic hardware is in good position. No evidence of hardware loosening. There is a small joint effusion. SOFT TISSUE: Normal. IMPRESSION: Stable stable partial right knee arthroplasty. DATA REPOSITORY: RADIATION DOSE DELIVERED:
== END 2024-08-28 15:11 | disposition home or self-care (01) ==
LOC: DIORS 15:10
PROVIDERS: PCP Nurse Practitioner; Visit Provider Student in an Organized Health Care Education/Training Program
DX: Z47.1 Aftercare following joint replacement surgery (principal); M17.12 Unilateral primary osteoarthritis, left knee; Z96.651 Presence of right artificial knee joint
CPT/HCPCS: 99213; 73560

== ENCOUNTER 2024-10-17 00:16 | Outpatient (CLI) | payer MEDICARE, BC, SELFPAY ==
--- NOTE | 2024-10-17 | DI.CT_ITS ---
Exam(s) CT CHEST W EXAM: CT CHEST W CLINICAL HISTORY: Lung nodule, R91.1; CT showed RUL and RML peripheral opacities, TECHNIQUE: Imaging Protocol: Axial computed tomography images with coronal and sagittal reformatted images were created and reviewed. Computer aided detection (CAD) was utilized. CONTRAST MATERIAL: Intravenous: Omnipaque 350 Contrast volume:70 ml. COMPARISON: CT CT CHEST W from 07/22/[address] CHEST W from 01/05/2024 FINDINGS: Pulmonary parenchyma: No consolidation. No dominant measurable mass. Scarring lateral right upper lo be. mild subpleural anterior fibrotic changes in the right upper lobe likely related to radiation t herapy. Improvement in findings over time. Stable 3 millimeter nodule anterior left upper lobe. Calcified granuloma again noted in the right up per lobe. No suspicious nodules. Tracheobronchial tree: No bronchiectasis or mucous plugging. Mediastinum and Barby: Roughly stable multiple small thyroid nodules. No dominant adenopathy or fluid collection. Pleura: No effusion. No pneumothorax. Heart: The heart is not dilated. Mild coronary artery calcifications are seen. Mitral annular calcif ications. Aorta: Thoracic aorta non-dilated. Mild atherosclerotic changes. Pulmonary arteries: No gross evidence of emboli. Upper abdomen: No acute findings. Bones: Degenerative changes in the spine. Soft tissues: Postsurgical changes in the right breast. IMPRESSION: No suspicious pulmonary findings. Subpleural scarring in the right upper lobe related to prior radiation therapy. Linear scarring in th e lateral right upper lobe. Stable tiny nodule left upper lobe. RADIATION DOSE DELIVERED: 142.52mGy.cm Total DLP DATA REPOSITORY: All CT scans at this facility are submitted to the National Radiology Data Registry (NRDR) Dose Index Registry (DIR) with the [employer] ([employer]). RADIATION OPTIMIZATION: All CT scans at this facility use at least one of these dose optimization te chniques: automated exposure control; mA and/or kV adjustment per patient size (includes targeted exa ms where dose is matched to clinical indication); or iterative reconstruction.
[2024-10-17] MEDS: Normal Saline - Diluent 50 ML VIAL IJ (09:05)
[2024-10-17] MEDS: Omnipaque 350 MG/ML 500 ML BTL-Imaging package 70 ML IJ (09:06)
== END 2024-10-17 00:36 ==
LOC: DI 00:20
PROVIDERS: PCP Nurse Practitioner; Visit Provider Physician Assistant
DX: R91.8 Other nonspecific abnormal finding of lung field (principal)
CPT/HCPCS: 71260; 82565

== ENCOUNTER 2024-11-22 02:28 | Outpatient (CLI) | payer MEDICARE, BC, SELFPAY ==
[2024-11-22 08:27] LABS: Hemoglobin A1C 5.8 % (<5.7)
[2024-11-22 08:42] LABS: ALT 30 U/L (14-59); AST 21 U/L (15-37); Albumin 3.9 g/dL (3.4-5.0); Alkaline Phosphatase 62 U/L (46-116); Anion Gap 8.2 mmol/L (3-11); BUN 16 mg/dL (7-18); Bilirubin, Total 0.7 mg/dL (0.2-1.0); CO2 31.8 mmol/L (21.0-32.0); Calcium 9.5 mg/dL (8.5-10.1); Calculated LDL 65 mg/dL (<100); Chloride 106 mmol/L (98-107); Cholesterol 143 mg/dL (<200); Glucose 94 mg/dL (74-106); HDL Cholesterol 55 mg/dL (>or=50); Potassium 3.8 mmol/L (3.5-5.1); Sodium 146 mmol/L (136-145); Total Protein 6.8 g/dL (6.4-8.2); Triglyceride 115 mg/dL (<150)
== END 2024-11-22 02:29 | disposition home or self-care (01) ==
PROVIDERS: Absent Provider Nurse Practitioner; PCP Nurse Practitioner; Referring Provider Nurse Practitioner; Visit Provider Nurse Practitioner
DX: E11.9 Type 2 diabetes mellitus without complications (principal); E78.5 Hyperlipidemia, unspecified; I10 Essential (primary) hypertension
CPT/HCPCS: 36415; 80053; 80061; 83036

== ENCOUNTER → 2025-08-27 00:24 | Outpatient (CLI) | payer MEDICARE, BC, SELFPAY ==
--- NOTE | 2025-08-27 11:21 | DI.MAMMO_ITS ---
Exam(s) MG MAMMO SCREENING 60 MIN DUR EXAM: MG MAMMO SCREENING 60 MIN DUR CLINICAL HISTORY: SCREENING MAMMO Z12.31 PERS HX BREAST CA Z85.3 PARTIAL MASTECTOMY RT 11/2021 TECHNIQUE: Bilateral full field digital CC and MLO mammographic images were obtained with 3D tomosynthesis and utilizing computer aided detection (CAD). COMPARISON: Comparison is made with prior examinations. FINDINGS: Masses/Architectural Distortion: No suspicious masses or areas of architectural distortion are present. The patient is status post right lumpectomy. Microcalcifications: No suspicious pleomorphic-type are seen. Skin Thickening/Nipple Retraction: None. IMPRESSION: 1. No significant interval change with no specific features of malignancy noted. 2. Unless there is more urgent need, screening mammography is recommended, as per [employer] guidelines. BI-RADS Category 2 - Benign Findings Breast Density - Category C - The breast are heterogeneously dense, which may obscure small masses. Breast density Category C or D implies that the patient has dense breast tissue. Dense breast tissue can make it harder to find cancer on a mammogram. Dense breast tissue is also associated with an increased risk of breast cancer. This information about the result of the mammogram report was provided to the patient to raise their awareness. Use this report when you speak with the patient about their risks for breast cancer, which includes their family history. At that time, you may recommend additional screening tests (Ultrasound or MRI) as these tests may add significant information. A negative radiographic report should not delay biopsy if a dominant or clinically suspicious mass is present. Up to ten percent of cancers are not identified on mammography. A negative report may reinforce clinical impression. Adenosis and dense breasts may obscure an underlying neoplasm. False positive reports average 6 to 10%. Patient will receive a letter notifying them of these results.
== END ==
LOC: DI 00:24
PROVIDERS: PCP Nurse Practitioner; Visit Provider Surgery Surgical Oncology
DX: Z12.31 Encounter for screening mammogram for malignant neoplasm of breast (principal); Z85.3 Personal history of malignant neoplasm of breast
CPT/HCPCS: 77063; 77067